=== PATIENT | female | born 1990 | race African-American/Black ===

== ENCOUNTER 2019-12-27 12:45 | Day surgery (SDC) | payer OTHER, SELFPAY ==
[2019-12-26 15:48] LABS: Basophils % 0.5 % (0-1.3); Hematocrit 38.8 % (36.0-45.0); Lymphocytes % 41.8 % (15.3-44.8); MPV 8.9 fL (7.6-11.3); RBC Red Blood Cell Count 4.46 M/uL (3.86-4.86)
[2019-12-26 16:31] LABS: Specific Gravity >= 1.030 (1.005-1.030); Urine Appearance CLEAR; Urine Bilirubin NEGATIVE (NEG); Urine Blood 1+ (NEG); Urine Color YELLOW; Urine Glucose NEGATIVE (NEG); Urine Protein NEGATIVE (NEG); Urine Specific Gravity >=1.030 (1.005-1.030); Urine Urobilinogen 0.2 mg/dL (0.2-1.0)
[2019-12-26 16:36] LABS: Urine Microscopic Reflex ORDER UMIC
[2019-12-26 16:49] LABS: Urine Bacteria <20 /HPF (<20); Urine Culture Reflex Order NOT NEEDED; Urine Mucus 1+ /HPF (NONE SEEN); Urine RBC <5 /HPF (NONE SEEN)
--- OUTSIDE RECORDS SUMMARY | 2019-12-27 14:07 | XMS REPORT | Continuity of Care Document ---
:1990 Author Organization [facility] t Address [address] [place] [address] Care Team Providers Name Role Phone Unavailable Unavailable Unavailable Payers Payer Name Policy Type Policy Number Effective Date Expiration Date S ource Problems This patient has no known problems. Allergies, Adverse Reactions, Alerts Allergy Allergy Status Severity Reaction(s) Onset Inactive Treating Comm ents Source Name Type Date Date Clinician minocycl DA Active SV 2020-0 [facility] [place] 00:00: d 00 [facility] ATROPINE DA Active [place] 2020-0 [facility] EYE 6-10 [place] DROPS 00:00: d 00 [facility] Medications This patient has no known medications. Procedures This patient has no known procedures. Results Test Description Test Time Test Comments Results Result Comments Source CA 125 2019-12-26 08:11:00 Test Item Value Reference Range Interpretation Comme nts CA 125 (test code = 4.2 U/mL 0.0-38.1 [facility] Electrochemiluminescence CA125) Immunoassay(ECL IA)Values obtained with different assay methods or kits cannotbe used interchang eably. Results cannot be interpreted asa bsolute evidence of the presence or abs ence of malignantdiseas e.Performed At: [facility] [place], [place] [address]Yeqwi Kyle L MD Ph:[phone] - PELVIC [id number] 15:26:00 Name: SKYLAR NEELY : 1990 Age/S: 29 / F [address] [address] [place] Unit #: [id number] Loc: [place] [address] Phys: Undefined Provider Acct: [id number] Dis Date: Status: REG CLI PHONE #: [phone] Exam Date: 12/25/2019 1453 FAX #: Reason: Pelvic pain EXAMS: CPT: [id number] US PELVIC COMPLETE 30600 EXAM: - USTRANSVAGINAL NON OB, - US PELVIC COMPLETE LOCATION: E5 HISTORY: PELVIC PAIN COMPARISON: CT abdomen and pelvis dated 12/19/2019 TECHNIQUE: Transabdominal and endovaginal ultrasound was performed. Spectral Doppler and color Doppler sonographic analysis of the adnexa was performed. FINDINGS: The uterus measures 6.1 x 2.8 x3.1 cm. Endometrial stripe measures 0.2 cm. No myometrial masses are seen. The right ovary is surgically absent. There is a large hyperechoic mass seen at the left adnexa mat uring approximately 6.8 x 4.2 x 5.9 cm, relatively unchanged from prior CT. This somewhat obscures evaluation of the left ovary, however the left ovary does demonstrate normal vascularity. Physiologic free fluid is seen in the cul-de-sac. 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 No evidence of ovarian torsion. at 1526 Reported and signed by: Carleen Salinas MD CC: Technologist: Tanya Liu Trnscb Date/Time: 12/25/2019 (1526) t.SDR.EB14 PAGE 1 Signed Report N dm: SKYLAR NEELY [facility] : 1990 Age/S: 29/ F [address] [address] [place] Unit #: [id number] Loc: [place] [address] Phys: Undefined Provider Acct: [id number] Dis Date: Status: REG CLI PHONE #: [phone] Exam Date: 12/25/2019 7773 FAX #: Reason: Pelvic pain EXAMS: CPT: [id number] US PELVIC COMPLETE 50473 <Continued> Or ig Print D/T: S: 12/25/2019 (1530) Probe: PAGE 2 Signed Report- US TRANSVAGINAL NON [id number] 15:26:00 Name: SKYLAR NEELY : 1990 Age/S: 29 / F [address] [address] [place] Unit #: [id number] Loc: [place] [address] Phys: Undefined Provider Acct: [id number] Dis Date: Status: REG CLI PHONE #: [phone] Exam Date: 12/25/2019 5257 FAX #: Reason: PELVIC PAIN EXAMS: CPT: [id number] [place] [address] EXAM: - USTRANSVAGINAL NON OB, - US PELVIC COMPLETE LOCATION: E5 HISTORY: PELVIC PAIN COMPARISON: CT abdomen and pelvis dated 12/19/2019 TECHNIQUE: Transabdominal and endovaginal ultrasound was performed. Spectral Doppler and color Doppler sonographic analysis of the adnexa was performed. FINDINGS: The uterus measures 6.1 x 2.8 x3.1 cm. Endometrial stripe measures 0.2 cm. No myometrial masses are seen. The right ovary is surgically absent. There is a large hyperechoic mass seen at the left adnexa measuring approximately 6.8 x 4.2 x 5.9 cm, relatively unchanged from prior CT. This somewhat obscures evaluation of the left ovary, however the left ovary does demonstrate normal vascularity. Physiologic free fluid is seen in the cul-de-sac. 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 No evidence of ovarian torsion. at 1526 Reported and signed by: Carleen Salinas MD CC: Technologist: Tanya Liu Trnscb Date/Time: 12/25/2019 (1526) [email or web address] PAGE 1 Signed Report Name: SKYLAR NEELY : 1990 Age/S: 29/ F [address] Unit #: [id number] Loc: [place] [address] Phys: Undefined Provider Acct: [id number] Dis Date: Status: REG CLI PHONE #: [phone] Exam Date: 12/25/2019 1115 FAX #: Reason: PELVIC PAIN EXAMS: CPT: [id number] [place] [address] <Continued> Orig Print D/T: S: 12/25/2019 (1530) Probe: [id number] PAGE 2 Signed Report- CT ABD PELVIS W WO [id number] 09:06:00 Name: SKYLAR NEELY : 1990 Age/S: 29 / F [address] [address] [place] Unit #: [id number] Loc: [place] [address] Phys: Undefined Provider Acct: [id number] Dis Date: Status: DEP CLI PHONE #: [phone] Exam Date: 12/19/2019 7334 FAX #: Reason: NAUSEA,CONSTIPATION, PAINFUL RECTAL BLEEING Report Has Been Amended EXAMS: CPT: [id number] CT ABD PELVIS W WO CONT 50648 Addendum - 12/20/2019 SIGNED 12/20/2019 ADDENDUM: [id number] CT/CTABPLWWO Oral contrast was administered for the examination, oral contrast reaches to the level of mid small bowel loops. at 0906 Reported and signed by: Norris Lynch M.D. Transcribed: 12/20/2019 (905) StarANS4 Report EXAMINATION: - CT ABD PELVIS W WO CONT. LOCATION: S17. HISTORY: Nausea, constipation, painful rectal bleeding, appendectomy, right ovary removal, hematuria. COMPARISON: None. TECHNIQUE: CTimaging was performed of abdomen and pelvis before and after intravenous administration of 100cc of Isovue-300. Oral contrast material was also administered. One or more the following dose reduction techniques were used: Automated exposure control, adjustment of mA and/or kV according to patient size, and use of iterative reconstruction technique. FINDINGS: Examination is limited due to lack of oral contrast. Visualized lung bases appear unremarkable. Nonvisualization of gallbladder. Liver, spleen, pancreas, adrenals and kidneys appear unremarkable. No hydronephrosis. Underdistended urinary bladder with possible surrounding stranding. The bowel loops appear normal in course and caliber. No bowel obstruction. Moderate stool throughout colon. Postoperative changes at the base of cecum.Colonic diverticula. PAGE 1 Signed Report (CONTINUED) Name: SKYLAR NEELY : 1990 Age/S: 29 / F [address] [place] Unit #: [id number] Loc: [place] [address] Phys: Undefined Provider Acct: [id number] Dis Date: Status: DEP CLI PHONE #: [phone] Exam Date: 12/19/2019 1515 FAX #: Reason: NAUSEA, CONSTIPATION, PAINFUL RECTAL BLEEING Report Has Been Amended EXAMS: CPT: [id number] CT ABD PELVIS W WO CONT [address]137 <Continued> No abdominal or pelvic bulky lymphadenopathy is identified. No pneumoperitoneum or free fluid. Uterus appears unremarkable by CT technique. Postoperative clips in right adnexa. 6.8 x 5.1 x 5 cm fat attenuation structure in left adnexa containing internal calcifications. Visualized osseous structures appear unremarkable. IMPRESSION: Underdistended urinary bladder with surrounding fat stranding, correlate with UA. Moderate stool throughout colon. Colonic diverticula. 6.8 x 5.1 cm fat attenuation structure in left adnexa containing internal calcifications, indicative of dermoid/teratoma. Electronically Signed by George Lynch on 12/19/2019 at 1601 Reported and signed by: Norris Lynch M.D. CC: Technologist:Tory Stiles, RT(R);... CTDI: DLP: Trnscb Date/Time: 12/19/2019 (1601) [email or web address] Print D/T: S: 12/19/2019 (1604) PAGE 2 Signed Report- CT ABD PELVIS W WO CONT 2019-12-19 16:01:00 Name: SKYLAR NEELY : 1990 Age/S: 29 / F [address] [address] [place] Unit #: [id number] Loc: [place] [address] Phys: Undefined Provider Acct: [id number] Dis Date: Status: REG CLI PHONE #: [phone] Exam Date: 12/19/2019 1515 FAX #: Reason: NAUSEA,CONSTIPATION, PAINFUL RECTAL BLEEING EXAMS: CPT: [id number] CT ABD PELVIS W WO CONT 85377 EXAMINATION: - CT ABD PELVIS W WO CONT. LOCATION: S17. HISTORY: Nausea, constipation, painful rectal bleeding, appendectomy, right ovary removal, hematuria. COMPARISON: None. TECHNIQUE: CT imaging was performed of abdomen and pelvis before and after intravenous administration of 100 cc of Isovue-300. Oral contrast material was also administered. One or more the following dose reduction techniques were used: Automated exposure control, adjustment of mA and/or kV according to patient size, and use of iterative reconstruction technique. FINDINGS: Examination is limited due to lack of oral contrast. Visualized lung bases appear unremarkable. Nonvisualization of gallbladder. Liver, spleen, pancreas, adrenals and kidneys appear unremarkable. No hydronephrosis. Underdistended urinary bladder with possible surrounding stranding. The bowel loops appear normal in course and caliber. No bowel obstruction. Moderate stool throughout colon. Postoperative changes at the base of cecum. Colonic diverticula. No abdominal or pelvic bulky lymphadenopathy is identified. No pneumoperitoneum or free fluid. Uterus appears unremarkable by CT technique. Postoperative clips in right adnexa. 6.8 x 5.1 x 5 cm fat attenuation structure in left adnexa containing internal calcifications. Visualized oss eous structures appear unremarkable. IMPRESSION: Underdistended urinary bladder with surrounding fat stranding, correlate with UA. Moderate stool throughout colon. Colonic diverticula. PAGE 1 Signed Report (CONTINUED) Name: SKYLAR NEELY [place] : 1990 Age/S: 29 / F [address] [facility] [place] Unit #: [id number] Loc: [place] [address] Phys: Undefined Provider Acct: [id number] Dis Date: Status: REG CLI PHONE #: [phone] Exam Date: 12/19/2019 0275 FAX #: Reason: NAUSEA, CONSTIPATION, PAINFUL RECTAL BLEEING EXAMS: CPT: [id number] CT ABD PELVIS W [place] CONT [address] <Continued> 6.8 x 5.1 cm fat attenuation structure inleft adnexa containing internal calcifications, indicative of dermoid/teratoma. [id number] Reported and signed by: Norris Lynch M.D. CC: Technologist:Tory L Stiles, RT(R); ... CTDI: DLP: Trnscb Date/Time: 12/19/2019 (160) t.DAER.[email or web address] Orig Print D/T: S: 12/19/2019 (9510) PAGE 2 Signed ReportHIGH SENSITIVITY CRP 2019-11-22 08:35:00 Test Item Value Reference Range Interpretation Comments HIGH SENSITIVITY CRP 10.75 mg/L 0.00-3.00 A Relative Risk (test code = CRPHS) for Futu re Cardiovascular Event Low <1.00 [place] 1.00 - 3.00 High >3.00Performed At: [facility] [address] [id number] ruben Reid MD Ph:[phone] [facility] COMPREHENSIVE METABOLIC [id number] 08:01:00 Test Item Value Reference Range Interpretation Comments SODIUM (test code = NA) 136 mmol/L 134-147 N POTASSIUM (test code = 4.0 mmol/L 3.4-5.0 N K) CHLORIDE (test code = 106 mmol/L 100-108 N CL) CARBON DIOXIDE (test 25 mmol/L 21-32 N code = CO2) ANION GAP (test code = 5.0 GAP calc 4.0-15.0 N GAP) GLUCOSE (test code = 90 MG/DL 70-110 N GLU) BLOOD UREA NITROGEN 10 MG/DL 7-18 N (test code = BUN) GLOMERULAR FILTRATION >=60 max estimate >60 RATE (test code = GFR) estGFR CREATININE (test code = 0.7 MG/DL 0.6-1.0 N CREAT) TOTAL PROTEIN (test code 7.9 G/DL 6.4-8.2 N = PROT) ALBUMIN (test code = 4.1 G/DL 3.4-5.0 N ALB) GLOBULIN (test code = 3.8 GM/dL GLOB) ALBUMIN/GLOBULIN RATIO 1.1 RATIO 1.2-2.2 L (test code = A/G) CALCIUM (test code = CA) 9.3 MG/DL 8.5-10.1 N BILIRUBIN TOTAL (test 0.30 MG/DL 0.2-1.2 N code = BILT) SGOT/AST (test code = 14 Unit/L 15-37 L AST) SGPT/ALT (test code = 21 Unit/L 12-78 N ALT) ALKALINE PHOSPHATASE 76 Unit/L 45-117 N TOTAL (test code = ALKP) LIPID PROFILE (CORONARY RISK)2019-11-22 08:01:00 Test Item Value Reference Range Interpretation Comments TRIGLYCERIDES (test code = TRIG) 54 MG/DL 0-150 N CHOLESTEROL (test code = CHOL) 161 MG/DL 133-200 N CHOLESTEROL/HDL RATIO (test code = 4.24 RATIO >0 CHOLHDL) HDL CHOLESTEROL (test code = HDL) 38 MG/DL 40-59 L NON-HDL CHOLESTEROL (test code = 123 mg/dL <130 NHDL) LIPOPROTEIN LDL (test code = LDL) 115 MG/DL 0-129 N LDL/HDL (test code = LDL/HDL) 3.02 Ratio 1.48-3.22 Avg N SERUM [id number] 08:01:00 Test Item Value Reference Range Interpretation Comments SERUM IRON (test code = IRON) 50 mcG/DL 50-170 N VITAMIN [id number] 08:01:00 Test Item Value Reference Range Interpretation Comments VITAMIN B12 (test code = VITB12) 316 PG/ML 183-986 N FOLIC [id number] 08:01:00 Test Item Value Reference Range Interpretation Comments FOLIC ACID (test code = FOL) 18.90 NG/ML 3.10-17.50 H T3 [id number] 08:01:00 Test Item Value Reference Range Interpretation Comments T3 FREE (test code = 2.8 pg/mL 2.0-4.4 Perform ed At: [facility] T3F) [address] [place], [place] [id number] Kyle L MD Ph:[phone] T4 [id number] 08:01:00 Test Item Value Reference Range Interpretation Comments T4 FREE (test code = T4F) 0.95 NG/DL 0.89-1.76 N THYROID STIMULATING [id number] 08:01:00 Test Item Value Reference Range Interpretation Comments THYROID STIMULATING HORMONE 0.382 mcIU/ML 0.340-4.820 N (test code = TSH) [id number] 08:01:00 Test Item Value Reference Range Interpretation Comments LITHIUM (test 0.2 mmol/L 0.6-1.2 L code = LITH) Detection Limit = 0.1 <0.1 indicate s None DetectedPerform ed At: [facility] [place] [address] [place], [place] [id number] Reid MD Ph:[phone] VITAMIN D [id number] 08:01:00 Test Item Value Reference Range Interpretation Comments VITAMIN D 22.1 ng/mL 30.0-100.0 A Vitamin D defic iency has 25-HYDROXY (test been define d by the code = VITD25) [facility] edicine and an Endocrine So ciety practice guidel ine as alevel of serum 25-OH vitamin D less than 20 ng/mL (1,2).The Endocrine Society went on to further define vitamin Dinsufficiency as a level between 21 and 29 ng/mL (2).1. IOM (Ins titute of Medicine). 2010 . Dietary reference int akes for calcium and D. [place]: The How do you roll? Press .2. Bryon MF, Alissa NC, Natty bucio BLEDSOE, et al. Evaluatio n, treatment, and prevention of vitamin D deficiency: an Endocrine Society clinica l practice guideline. STEFANO EM. 2010; 96(7):1911-30.P erformed At: [facility]fnfokx232[address] [place], [place] [id number] Reid MD Ph:[phone] COMPREHENSIVE METABOLIC [id number] 05:09:00 Test Item Value Reference Range Interpretation Comments SODIUM (test code = NA) 136 mmol/L 134-147 N POTASSIUM (test code = 4.0 mmol/L 3.4-5.0 N K) CHLORIDE (test code = 106 mmol/L 100-108 N CL) CARBON DIOXIDE (test 25 mmol/L 21-32 N code = CO2) ANION GAP (test code = 5.0 GAP calc 4.0-15.0 N GAP) GLUCOSE (test code = 90 MG/DL 70-110 N GLU) BLOOD UREA NITROGEN 10 MG/DL 7-18 N (test code = BUN) GLOMERULAR FILTRATION >=60 max estimate >60 RATE (test code = GFR) estGFR CREATININE (test code = 0.7 MG/DL 0.6-1.0 N CREAT) TOTAL PROTEIN (test code 7.9 G/DL 6.4-8.2 N = PROT) ALBUMIN (test code = 4.1 G/DL 3.4-5.0 N ALB) GLOBULIN (test code = 3.8 GM/dL GLOB) ALBUMIN/GLOBULIN RATIO 1.1 RATIO 1.2-2.2 L (test code = A/G) CALCIUM (test code = CA) 9.3 MG/DL 8.5-10.1 N BILIRUBIN TOTAL (test 0.30 MG/DL 0.2-1.2 N code = BILT) SGOT/AST (test code = 14 Unit/L 15-37 L AST) SGPT/ALT (test code = 21 Unit/L 12-78 N ALT) ALKALINE PHOSPHATASE 76 Unit/L 45-117 N TOTAL (test code = ALKP) LIPID PROFILE (CORONARY RISK)2019-11-22 05:09:00 Test Item Value Reference Range Interpretation Comments TRIGLYCERIDES (test code = TRIG) 54 MG/DL 0-150 N CHOLESTEROL (test code = CHOL) 161 MG/DL 133-200 N CHOLESTEROL/HDL RATIO (test code = 4.24 RATIO >0 CHOLHDL) HDL CHOLESTEROL (test code = HDL) 38 MG/DL 40-59 L NON-HDL CHOLESTEROL (test code = 123 mg/dL <130 NHDL) LIPOPROTEIN LDL (test code = LDL) 115 MG/DL 0-129 N LDL/HDL (test code = LDL/HDL) 3.02 Ratio 1.48-3.22 Avg N SERUM [id number] 05:09:00 Test Item Value Reference Range Interpretation Comments SERUM IRON (test code = IRON) 50 mcG/DL 50-170 N VITAMIN [id number] 05:09:00 Test Item Value Reference Range Interpretation Comments VITAMIN B12 (test code = VITB12) 316 PG/ML 183-986 N FOLIC [id number] 05:09:00 Test Item Value Reference Range Interpretation Comments FOLIC ACID (test code = FOL) 18.90 NG/ML 3.10-17.50 H T3 [id number] 05:09:00 Test Item Value Reference Range Interpretation Comments T3 FREE (test code = 2.8 pg/mL 2.0-4.4 Perform ed At: [facility] T3F) [address] [place], [place] [id number] Kyle L MD Ph:[phone] T4 [id number] 05:09:00 Test Item Value Reference Range Interpretation Comments T4 FREE (test code = T4F) 0.95 NG/DL 0.89-1.76 N THYROID STIMULATING [id number] 05:09:00 Test Item Value Reference Range Interpretation Comments THYROID STIMULATING HORMONE 0.382 mcIU/ML 0.340-4.820 N (test code = TSH) [id number] 05:09:00 Test Item Value Reference Range Interpretation Comments LITHIUM (test code = LITH) MMOL/L 0.6-1.2 VITAMIN D [id number] 05:09:00 Test Item Value Reference Range Interpretation Comments VITAMIN D 22.1 ng/mL 30.0-100.0 A Vitamin D defic iency has 25-HYDROXY (test been define d by the code = VITD25) [facility] edicine and an Endocrine So ciety practice guidel ine as alevel of serum 25-OH vitamin D less than 20 ng/mL (1,2).The Endocrine Society went on to further define vitamin Dinsufficiency as a level between 21 and 29 ng/mL (2).1. IOM (Ins titute of Medicine). 2010 . Dietary reference int akes for calcium and D. [place]: The [employer] Academies Press .2. Bryon MF, Alissa NC, Natty i BLEDSOE, et al. Evaluatio n, treatment, and prevention of vitamin D deficiency: an Endocrine Society clinica l practice guideline. STEFANO EM. 2010; 96(7):1911-30.P erformed At: [facility] [address] [place], [place] [id number] Reid MD Ph:[phone] COMPREHENSIVE METABOLIC [id number] 04:07:00 Test Item Value Reference Range Interpretation Comments SODIUM (test code = NA) 136 mmol/L 134-147 N POTASSIUM (test code = 4.0 mmol/L 3.4-5.0 N K) CHLORIDE (test code = 106 mmol/L 100-108 N CL) CARBON DIOXIDE (test 25 mmol/L 21-32 N code = CO2) ANION GAP (test code = 5.0 GAP calc 4.0-15.0 N GAP) GLUCOSE (test code = 90 MG/DL 70-110 N GLU) BLOOD UREA NITROGEN 10 MG/DL 7-18 N (test code = BUN) GLOMERULAR FILTRATION >=60 max estimate >60 RATE (test code = GFR) estGFR CREATININE (test code = 0.7 MG/DL 0.6-1.0 N CREAT) TOTAL PROTEIN (test code 7.9 G/DL 6.4-8.2 N = PROT) ALBUMIN (test code = 4.1 G/DL 3.4-5.0 N ALB) GLOBULIN (test code = 3.8 GM/dL GLOB) ALBUMIN/GLOBULIN RATIO 1.1 RATIO 1.2-2.2 L (test code = A/G) CALCIUM (test code = CA) 9.3 MG/DL 8.5-10.1 N BILIRUBIN TOTAL (test 0.30 MG/DL 0.2-1.2 N code = BILT) SGOT/AST (test code = 14 Unit/L 15-37 L AST) SGPT/ALT (test code = 21 Unit/L 12-78 N ALT) ALKALINE PHOSPHATASE 76 Unit/L 45-117 N TOTAL (test code = ALKP) LIPID PROFILE (CORONARY RISK)2019-11-22 04:07:00 Test Item Value Reference Range Interpretation Comments TRIGLYCERIDES (test code = TRIG) 54 MG/DL 0-150 N CHOLESTEROL (test code = CHOL) 161 MG/DL 133-200 N CHOLESTEROL/HDL RATIO (test code = 4.24 RATIO >0 CHOLHDL) HDL CHOLESTEROL (test code = HDL) 38 MG/DL 40-59 L NON-HDL CHOLESTEROL (test code = 123 mg/dL <130 NHDL) LIPOPROTEIN LDL (test code = LDL) 115 MG/DL 0-129 N LDL/HDL (test code = LDL/HDL) 3.02 Ratio 1.48-3.22 Avg N SERUM [id number] 04:07:00 Test Item Value Reference Range Interpretation Comments SERUM IRON (test code = IRON) 50 mcG/DL 50-170 N VITAMIN [id number] 04:07:00 Test Item Value Reference Range Interpretation Comments VITAMIN B12 (test code = VITB12) 316 PG/ML 183-986 N FOLIC [id number] 04:07:00 Test Item Value Reference Range Interpretation Comments FOLIC ACID (test code = FOL) 18.90 NG/ML 3.10-17.50 H T3 [id number] 04:07:00 Test Item Value Reference Range Interpretation Comments T3 FREE (test code = 2.8 pg/mL 2.0-4.4 Perform ed At: [facility] T3F) [address] [place], [place] [id number] Carlos Reid MD Ph:[phone] T4 [id number] 04:07:00 Test Item Value Reference Range Interpretation Comments T4 FREE (test code = T4F) 0.95 NG/DL 0.89-1.76 N THYROID STIMULATING [id number] 04:07:00 Test Item Value Reference Range Interpretation Comments THYROID STIMULATING HORMONE 0.382 mcIU/ML 0.340-4.820 N (test code = TSH) [id number] 04:07:00 Test Item Value Reference Range Interpretation Comments LITHIUM (test code = LITH) MMOL/L 0.6-1.2 VITAMIN D [id number] 04:07:00 Test Item Value Reference Range Interpretation Comments VITAMIN D 25-HYDROXY (test code = VITD25) COMPREHENSIVE METABOLIC [id number] 16:27:00 Test Item Value Reference Range Interpretation Comments SODIUM (test code = NA) 136 mmol/L 134-147 N POTASSIUM (test code = 4.0 mmol/L 3.4-5.0 N K) CHLORIDE (test code = 106 mmol/L 100-108 N CL) CARBON DIOXIDE (test 25 mmol/L 21-32 N code = CO2) ANION GAP (test code = 5.0 GAP calc 4.0-15.0 N GAP) GLUCOSE (test code = 90 MG/DL 70-110 N GLU) BLOOD UREA NITROGEN 10 MG/DL 7-18 N (test code = BUN) GLOMERULAR FILTRATION >=60 max estimate >60 RATE (test code = GFR) estGFR CREATININE (test code = 0.7 MG/DL 0.6-1.0 N CREAT) TOTAL PROTEIN (test code 7.9 G/DL 6.4-8.2 N = PROT) ALBUMIN (test code = 4.1 G/DL 3.4-5.0 N ALB) GLOBULIN (test code = 3.8 GM/dL GLOB) ALBUMIN/GLOBULIN RATIO 1.1 RATIO 1.2-2.2 L (test code = A/G) CALCIUM (test code = CA) 9.3 MG/DL 8.5-10.1 N BILIRUBIN TOTAL (test 0.30 MG/DL 0.2-1.2 N code = BILT) SGOT/AST (test code = 14 Unit/L 15-37 L AST) SGPT/ALT (test code = 21 Unit/L 12-78 N ALT) ALKALINE PHOSPHATASE 76 Unit/L 45-117 N TOTAL (test code = ALKP) LIPID PROFILE (CORONARY RISK)2019-11-21 16:27:00 Test Item Value Reference Range Interpretation Comments TRIGLYCERIDES (test code = TRIG) 54 MG/DL 0-150 N CHOLESTEROL (test code = CHOL) 161 MG/DL 133-200 N CHOLESTEROL/HDL RATIO (test code = 4.24 RATIO >0 CHOLHDL) HDL CHOLESTEROL (test code = HDL) 38 MG/DL 40-59 L NON-HDL CHOLESTEROL (test code = 123 mg/dL <130 NHDL) LIPOPROTEIN LDL (test code = LDL) 115 MG/DL 0-129 N LDL/HDL (test code = LDL/HDL) 3.02 Ratio 1.48-3.22 Avg N SERUM [id number] 16:27:00 Test Item Value Reference Range Interpretation Comments SERUM IRON (test code = IRON) 50 mcG/DL 50-170 N VITAMIN [id number] 16:27:00 Test Item Value Reference Range Interpretation Comments VITAMIN B12 (test code = VITB12) 316 PG/ML 183-986 N FOLIC [id number] 16:27:00 Test Item Value Reference Range Interpretation Comments FOLIC ACID (test code = FOL) 18.90 NG/ML 3.10-17.50 H T3 [id number] 16:27:00 Test Item Value Reference Range Interpretation Comments T3 FREE (test code = T3F) T4 [id number] 16:27:00 Test Item Value Reference Range Interpretation Comments T4 FREE (test code = T4F) 0.95 NG/DL 0.89-1.76 N THYROID STIMULATING [id number] 16:27:00 Test Item Value Reference Range Interpretation Comments THYROID STIMULATING HORMONE 0.382 mcIU/ML 0.340-4.820 N (test code = TSH) [id number] 16:27:00 Test Item Value Reference Range Interpretation Comments LITHIUM (test code = LITH) MMOL/L 0.6-1.2 VITAMIN D [id number] 16:27:00 Test Item Value Reference Range Interpretation Comments VITAMIN D 25-HYDROXY (test code = VITD25) GLYCOSYLATED HEMOGLOBIN [id number] 15:32:00 Test Item Value Reference Range Interpretation Comments GLYCOSYLATED HEMOGLOBIN (HA1C) 5.3 % A1C 0.0-5.7 N (test code = GLYHGB) ESTIMATED AVERAGE GLUCOSE (test 105 MG/DLest code = EAG) CBC W/AUTO [id number] 15:07:00 Test Item Value Reference Range Interpretation Comments WHITE BLOOD CELL (test code = 7.6 K/mm3 3.5-11.0 N WBC) RED BLOOD CELL (test code = RBC) 4.36 M/mm3 4.70-6.10 L HEMOGLOBIN (test code = HGB) 11.8 G/DL 10.4-14.9 N HEMATOCRIT (test code = HCT) 38.1 % 31.5-44.1 N MEAN CELL VOLUME (test code = 87.4 Fl 84.5-98.6 N MCV) MEAN CELL HGB (test code = MCH) 27.1 pg 27.0-34.2 N MEAN CELL HGB CONCETRATION (test 31.0 G/DL 31.5-34.0 L code = [facility]) RED CELL DISTRIBUTION WIDTH (test 13.3 SD 11.5-14.5 N code = RDW) PLATELET COUNT (test code = PLT) 271.0 K/mm3 150-450 N MEAN PLATELET VOLUME (test code = 9.90 fL 7.0-10.5 N MPV) NEUTROPHIL % (test code = NT%) 59.2 % 40-76 N LYMPHOCYTE % (test code = LY%) 31.7 % 20.5-51.1 N MONOCYTE % (test code = MO%) 7.7 % 1.7-9.3 N EOSINOPHIL % (test code = EO%) 1.1 % 0.0-6.0 N BASOPHIL % (test code = BA%) 0.3 % 0.0-2.0 N NEUTROPHIL # (test code = NT#) 4.48 K/mm3 1.8-7.6 N LYMPHOCYTE # (test code = LY#) 2.4 K/mm3 0.6-3.2 N MONOCYTE # (test code = MO#) 0.6 K/mm3 0.3-1.1 N EOSINOPHIL # (test code = EO#) 0.1 K/mm3 0.0-0.4 N BASOPHIL # (test code = BA#) 0.0 K/mm3 0.0-0.1 N MANUAL DIFF REQUIRED (test code = NO DIFF/SCN CRITERIA MDIFF)
[2019-12-27] MEDS ORDERED: propofoL 200 MG/20 ML VIAL IV ONE (14:10)
[2019-12-27] MEDS ORDERED: FENTANYL CITR 100 MCG/2 ML ONE ×2 (14:10→16:00)
[2019-12-27] MEDS ORDERED: LIDOCAINE 2% MPF 5 ML VIAL ONE (14:11)
[2019-12-27] MEDS ORDERED: dexAMETHasone 10 MG/ML VIAL ONE (14:11)
[2019-12-27] MEDS ORDERED: MIDAZOLAM HCL 2 MG/2 ML INJ ONE (14:11)
[2019-12-27] MEDS ORDERED: KETOROLAC 30 MG/ML INJ ONE (14:11)
[2019-12-27] MEDS ORDERED: ROCURONIUM 50 MG/5 ML VIAL IV ONE (14:11)
[2019-12-27] MEDS ORDERED: ONDANSETRON 4 MG/2 ML VIAL ONE ×3 (14:12→19:15)
[2019-12-27] MEDS ORDERED: HEPARIN 5000 UNIT/ML 1 ML VIAL ONE (14:14)
[2019-12-27] MEDS ORDERED: Ringers Lactate 1,000 ML IV ONE (14:14)
[2019-12-27] MEDS ORDERED: SCOPOLAMINE HYDROBROMIDE PATCH TD ONE (14:14)
[2019-12-27] MEDS ORDERED: CODEINE 30MG/APAP 300MG TAB ONE (15:32)
[2019-12-27] MEDS ORDERED: CEFAZOLIN SODIUM 1 GM/VIAL ONE (16:58)
[2019-12-27] MEDS ORDERED: NS 0.9% VIAL 10 ML ONE (16:58)
[2019-12-27] MEDS ORDERED: GLYCOPYRROLATE 0.2 MG/ML SYR ONE ×2 (17:48)
[2019-12-27] MEDS ORDERED: NEOSTIGMINE 1 MG/ML -5 ML ONE (17:49)
[2019-12-27] MEDS: HYDROMORPHONE HCL 1 MG/ML INJ ONE ×2 (18:55→19:00)
[2019-12-27] MEDS ORDERED: HYDROMORPHONE HCL 1 MG/ML INJ ONE (19:15)
[2019-12-27] MEDS ORDERED: PROMETHAZINE INJ 25 MG/ML AMP ONE (19:42)
[2019-12-27] MEDS ORDERED: HYDROCODONE/APAP 5/325 MG TAB ONE (20:10)
[2019-12-27 20:27] VITALS: BP 110/52; TEMP 97.5; O2SAT 100
--- NOTE | 2019-12-29 13:03 | OP ---
Date of Procedure: 12/27/2019 Surgeon: Shaye Dasilva MD Preoperative Diagnoses: Pelvic pain, left adnexal mass, possible teratoma. 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 Procedures Performed: Diagnostic laparoscopy, pelvic washings, left ovariolysis, removal of left ovarian teratoma Anesthesia: General endotracheal. Specimens: Left ovarian mass, pelvic washings. Complications: No complications. Drains: No drains. Condition: Stable. Findings: Right tube and ovary completely absent. Left tube intact without any anatomical distortion, appeared completely normal. The left ovarian tumor was on the pole of the ovary, opposite the ovarian vessels. Completely removed the cyst without rupture of the cyst, however when bagging the cyst there was breakage of the cyst wall with slight contamination of the peritoneal cavity with sebaceous material. This was immediately contained by placing the first bag with the specimen on top of which there was sebaceous material into another bag and this was closed with no further contamination and the peritoneal cavity was rinsed with at least 2 L of normal saline. Until everything was clear, no evidence of any hair or sebaceous material was seen noted in the pelvic cavity after this. Indication: The patient is a 29-year-old 0. She had history of pelvic pain, diagnostic laparoscopy a few years ago, negative for endometriosis, moved away from here and was found to have pelvic pain and right adnexal complex mass that was about 2 cm. She was referred from a general senior game designer to an oncologist in [place] at [place] and underwent right salpingo-oophorectomy for this. She has done well. The pathology revealed a teratoma by patient report. At this time, the patient has presented with pelvic pain and an adnexal mass that was complex less than 7 cm on the left side most likely. Did not appear to have any acute symptoms of torsion, however there was significant enough pain to need a laparoscopy at this time. Her CA-125 was ordered, however the test results were not available when her preop was done and she was taken to the OR. 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 So, counseled the patient on preservation of the ovary, removal of the teratoma, very small chance of removal of tube and ovary leading to premature surgical menopause. After being consented, she was taken to the OR. She also has a remote history of deep venous thrombosis on combination hormones and therefore given the hypercoagulable state for this patient, she was given 5000 of heparin subcu followed by Lovenox 60 mg subcu for 1 week postop due to early mobilization and the short duration of the procedure. With patient in the lithotomy all precautions taken including SCDs, I think it is completely optimal to limit her anticoagulation to 1 week. Description Of Procedure: After informed consent was verified, she was taken back to OR, 1 g of Ancef was given. She was placed in a supine fashion on the operating table. General anesthesia was given, placed in a dorsal lithotomy position. Arms tucked by the side. Abdomen, vulva, vagina, and perineum were prepped and draped in a sterile fashion. Hendricks placed to drain the bladder. Speculum placed to expose the cervix. Anterior lip of the cervix was grasped with an Allis clamp and the cervical canal dilated to 12-Nigerien. Diagnostic VCare introduced to the uterus for uterine manipulation. Once the bottom was draped, an infraumbilical incision was made with the scalpel using the open laparoscopy technique. Fascia was incised and tagged with 0 Vicryl sutures. S-retractors were placed. Peritoneum entered sharply. Insufflation done and Diony introduced. Site of entry was checked, unremarkable. A 5 mm suprapubic and 5 mm left lower quadrant ports were placed under direct vision and peritoneal cavity was surveyed well. Thorough inspection was done, then pelvic washings were taken. The cyst appeared to be completely smooth on its surface and there were adhesions of the ovary to the lateral aspect of the lateral wall of the pelvis. This could be from either prior torsion or inflammation of the dermoid. The ovarian adhesions were taken down so that the ovary could be released. No evidence of any endometriosis was seen. The right tube and ovary were completely absent. Ureters were undistorted and in their normal anatomical courses bilaterally. The tube was unremarkable. A monopolar needle was taken and incision made along the base of the tumor about 2 cm away from the insertion of the IP and the fimbriated end of the tube. A careful superficial incision on the ovarian capsule was made, then the mass was dissected systematically with the curved tip LigaSure as well as an atraumatic grasper to shell it out from its base and the hemostasis was secured adequately without causing too much cautery effect of the capsule. There were several follicular cells on the ovarian tissue and they appeared to be very viable at the end of removal of the tumor. The tumor was left in the anterior cul-de-sac and the 10 camera was changed to a 5 and through the umbilical port the 10 bag was placed and the specimen was placed into the bag. As I was placing into the bag, the superficial part where the sebaceous material was most visible with the capsule being very thin in this location, there was slight spillage of this material immediately as that the bag was closed down and then a second bag was taken and the specimen was placed into it, making sure that all the sebaceous material went into that bag. Once this bag was closed, there were no material leaking out of the bag and the rest of the material that was present right at the brim of the pelvis was washed down into the pelvis by placing the patient in reverse Trendelenburg and once the fluid was all suctioned out, very few strands of hair were seen and these were removed. Thorough irrigation and suction was performed. The patient was placed in Trendelenburg and reversed Trendelenburg and completely irrigated the entire abdominal cavity. Once this was done to my satisfaction, then the ports were removed under direct vision, injected with Marcaine at the onset and at the end. Then, the bag was pulled out through the umbilical incision after removing the Diony. Once first bag was opened up, it was held with Steffanie's. A sterile towel was placed all around by making an opening in the center to allow the bag to come out to prevent spillage. This towel helped us. The second bag was opened up and gradually with the help of an Allis, the material was pulled out and suctioned out. There was still more of the tissue that was unable to be pulled out in this fashion and so an extension of another cm on the fascia and skin was made and this allowed the bag to come out without any problems. The entire specimen was handed off for permanent pathology. I removed the towel, changed gloves for all staff members. Then all the operating room team members proceeded with closure of the incision. The incision was closed with the fascia with a continuous running 0 Vicryl stitch. Then, thorough irrigation and suction was performed here to clear up the subcutaneous tissues. Then the skin was closed with the help of continuous running 4-0 Vicryl stitch and other 2 small incisions closed with the interrupted 4-0 Vicryl. Hendricks was removed. VCare was removed. Instrument, needle, and sponge counts were correct at the end of the case. Before the removal of all the trocars, after the specimen was securely placed in the bag and irrigation was complete. I placed Interceed in 1 sheet, cut in the middle into 2 halves. The first one was placed around to wrap the ovarian tissue without exposing any of the raw tissue. I did not think that placing a suture was appropriate because it would increase the risk of bleeding as I was very close to the ovarian pedicle and the tube was also preserved on top of the capsule along with its fimbriae without any injury until this point. So it would be very hard to close appropriately for good apposition as well as increase the risk of bleeding at this point for this patient, who was going to be on Lovenox. So my decision was to wrap the ovary and I placed another second half of the Interceed over the tube as well as the ovary and wrapped it all the way around and placed it down after the uterus was placed down into its normal anatomical position. Then, all the trocars were removed as dictated above. She was recovered from anesthesia in the OR and taken to the PACU in stable condition. All the findings were discussed with her father. Instrument, needle, and sponge counts were correct. Estimated Blood Loss: Minimal. Urine Output: 100. Followup: She has a 1 week follow up with me. ZO/JAD Voice ID: [id number] Report ID: [id number] PAUL
== END 2019-12-27 20:44 | disposition home health service (06) ==
LOC: OR 12:45
PROVIDERS: ATTEND Obstetrics & Gynecology
PROC: 0UB14ZZ Excision of Left Ovary, Percutaneous Endoscopic Approach (ICD-10-PCS; principal; 2019-12-27 14:30)
DX: C56.2 Malignant neoplasm of left ovary (principal); N73.8 Other specified female pelvic inflammatory diseases; N73.6 Female pelvic peritoneal adhesions (postinfective); F33.1 Major depressive disorder, recurrent, moderate; E28.2 Polycystic ovarian syndrome; K58.9 Irritable bowel syndrome, unspecified; Z79.899 Other long term (current) drug therapy; Z86.718 Personal history of other venous thrombosis and embolism
CPT/HCPCS: 85025; 36415; 88108; 81025; 88305 ×2; 58662; U0002; J2704; J2550; J1644; J2250; J3010 ×2; J1100; J1170 ×2; J2710; J7120; J2405 ×3; J0690; 81003; 81015; 88304

== ENCOUNTER 2020-04-20 03:53 | Emergency (ER) | payer OTHER ==
--- OUTSIDE RECORDS SUMMARY | 2020-04-20 03:56 | XMS REPORT | Continuity of Care Document ---
:1990 Author Organization [facility] t Address [address] [place] [address] Care Team Providers Name Role Phone NARGIS Primary Care Physician Unavailable KRISTINA Attending Clinician Unavailable SYSTEM, NOT IN Attending Clinician Unavailable Miguel ARIZMENDI Attending Clinician MIGUEL Attending Clinician Unavailable NARGIS Attending Clinician Unavailable Nargis KITCHEN Attending Clinician Kristina KITCHEN Attending Clinician January Hernandez RN, A Attending Clinician Unavailable Payers Payer Name Policy Type Policy Number Effective Date Expiration Date Maxim [facility] POS [id number] 2019 00:00:00 OPEN ACCESS Problems Condition Condition Condition Status Onset Resolution Last Treating Co mments Source Name Details Category Date Date Treatment Clinician Date 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 00:00: n 00 Menopausal Menopausal Disease Active M D flushing flushing 9-14 Ermias o 00:00: n 00 Malignant Malignant Disease Active neoplasm neoplasm 7-13 Ermias o of left of left 00:00: n ovary ovary 00 Acute Acute Disease Active popliteal popliteal 7-13 Yves rso DVT DVT 00:00: n 00 History of History of Disease Active 2018-07 M D reduction reduction 0-11 Yves rso of breast of breast 00:00: n 00 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 00:00: n characteri characteri 00 zed by zed by constipati constipati on on Polycystic Polycystic Disease Active 2019-1 M D ovarian 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 00:00: n 00 Psoriasis Psoriasis Disease Active 2018- 0-11 Jovanierso 00:00: n 00 Allergies, Adverse Reactions, Alerts Allergy Allergy Status Severity Reaction(s) Onset Inactive Treating Comm ents Source Name Type Date Date Clinician minocycl DA Active SV 2020-0 [facility] ATROPINE DA Active IN 2019-0 [facility] EYE 6[facility]10 [place] Family History Family Member Diagnosis Comments Start Date Stop Date Source Maternal aunt Breast cancer MD Rossi son Maternal cousin Breast cancer jordyn Maternal grandmother Ovarian cancer MD [place] Social History Social Habit Start Date Stop Date Quantity Comments Source Sex Assigned At MD Monson on Exposure to Not sure MD Matute SARS-CoV-2 (event) Tobacco use and 2020-01-21 2020-01-21 Never used MD Monson on exposure 00:00:00 00:00:00 Alcohol intake 2020-01-21 2020-01-21 Ex-drinker MD Santana lopez 00:00:00 00:00:00 (finding) Alcohol Comment 2020-01-21 2020-01-21 I have like one MD Brooke hebert 00:00:00 00:00:00 drink a month Smoking Status Start Date Stop Date Source Never smoker MD [place] Medications Ordered Filled Start Stop Current Ordering Indication Dosage Frequency Signature Comments Components Source Medication Medication Date Date Medication? Clinician (SIG) Name Name medroxyPROG 2019- Yes 150mg Inject 150 MD ESTERone 9-14 mg into Anderso (DEPO-PROVE 17:52: the n RA) 150 04 shoulder, mg/mL thigh, or injection buttocks every 3 (three) months. risperiDONE 2019- Yes .5mg Take 0.5 MD (RisperDAL) 9-14 mg by Anderso 0.5 mg 17:52: mouth n tablet 04 daily. docusate 2019-2019- No 100mg Take 100 MD sodium 9-14 09-14 mg by Anderso (COLACE) 17:52: 00:00 mouth 2 n 100 mg 01 :00 (two) capsule times a day as needed. acetaminoph 650mg Take 650 MD lechuga 03-24 mg by Anderso (TYLENOL) 17:51: 00:00 mouth n 325 mg 58 :00 every 6 tablet (six) hours as needed for mild pain. diphenhydrA Yes MD REA 03-11 Anderso (BenadryL) 00:00: n 25 mg 00 capsule lithium 2018-07 Yes 600mg 600 mg MD carbonate 07-16 daily. Anderso 300 MG 00:00: n capsule 00 fluocinolon 2018-07 Yes APPLY TO MD richter 07-16 AFFECTED Anderso (DERMA-SMOO 00:00: AREA ON n THE) 0.01 % 00 SCALP ONCE external A DAY oil Vital Signs Vital Name Observation Time Observation Value Comments Source Systolic blood pressure 2020-03-24 17:55:00 124 mm[Hg] MD Mat[place] Diastolic blood pressure 2020-03-24 17:55:00 79 mm[Hg] MD [place] Heart rate 2020-03-24 17:55:00 69 /min MD Flo sherman Body temperature 2020-03-24 17:55:00 36.83 Zayra MD Brooke hebert Respiratory rate 2020-03-24 17:55:00 17 /min MD Brooke hebert Body weight 2020-03-24 17:55:00 106.7 kg MD Rossi son BMI 2020-03-24 17:55:00 34.84 kg/m2 MD Flo sherman Body height 2020-01-21 16:19:00 175 cm MD Flo sherman Oxygen saturation in 2020-01-21 16:17:56 97 /min MD [place] Arterial blood by Pulse oximetry Procedures Procedure Date / Time Performed Performing Clinician [facility] e FOLLICLE STIMULATING HORMONE 2020-03-24 18:32:00 Lilliana Barillas MD LEVEL ALPHA FETOPROTEIN TUMOR MARKER 2020-03-24 13:16:00 Kristine Salinas MD LACTATE DEHYDROGENASE 2020-03-24 13:16:00 Kristine Salinas MD And irenaon HC [facility] 2020-03-24 13:16:00 Kristine Salinas MD T) US PELVIS COMPLETE 2020-03-24 12:40:02 Kristine Salinas MD Ermias on US TRANSVAGINAL 2020-03-24 12:40:02 Kristine Salinas MD HEPATITIS C VIRUS ANTIBODY 2020-02-21 14:17:00 Kristine Salinas HC HIV 1/2 AG AND AB 4TH GEN 2020-02-21 14:17:00 Kristine Salinas MD ALPHA FETOPROTEIN TUMOR MARKER 2020-02-21 14:17:00 Kristine Salinas MD LACTATE DEHYDROGENASE 2020-02-21 14:17:00 Kristine Salinas MD And ralph HC BETA HCG TUMOR MARKER ([facility] 2020-02-21 14:17:00 Kristine Salinas MD T) TMP HIV 1/2 AG&AB PATH INTERP 2020-02-21 14:17:00 Kristine Salinas MD TMP HCVAB INTERP 2020-02-21 14:17:[address] CHEST ABDOMEN PELVIS W WO 2020-01-21 22:01:03 Kristine Salinas MD CONTRAST POC CREATININE 2020-01-21 21:24:00 Kristine Salinas MD HC 2019-NCOV COVID-19 2020-01-19 20:07:00 Lilliana Barillas MD And ralph PATHOLOGY OUTSIDE 2019-12-27 00:00:00 Rufino Acevedo MD INTERPRETATION OSI US PELVIC 2019-12-25 16:46:05 Lilliana Barillas MD OSI CT ABDOMEN AND PELVIS 2019-12-19 16:40:29 Lilliana Barillas MD Encounters Start End Encounter Admission Attending Care Care Encounter Source Date/Time Date/Time Type Type Clinicians Facility Department ID 2020-02-11 Outpatient DAVE RUFINO ACEVEDO MDA MDA [id number] 15:53:53 Anderso n 2020-02-11 Outpatient GEO GUARDADO [id number] 15:44:29 Anderso n 2020-01-23 Outpatient DAVE RUFINO ACEEVDO MDA MDA [id number] 12:18:11 Anderso n 2020-01-14 Outpatient GEO ZARAGOZA MDA [id number] 11:10:30 PROVIDER Ermias o john 2020-03-31 2020-03-31 Outpatient KRISTINE FUNEZ MDA MDA [id number] 00:00:00 00:00:00 Ermias o john 2020-03-31 2020-03-31 Outpatient DAVE BARILLAS MDA MDA [id number] 00:00:00 00:00:00 LILLIANA lopez 2020-03-24 2020-03-24 Outpatient DAVE BARILLAS, MDA MDA [id number] 13:17:17 13:33:42 LILLIANA lopez 2020-03-24 2020-03-24 Outpatient DAVE BARILLAS, MDA MDA [id number] MD 12:36:43 12:36:43 LILLIANA lopez 2020-03-24 2020-03-24 Outpatient KRISTINE FUNEZ MDA MDA [id number] 07:14:35 07:14:35 Ermias lopez 2020-03-24 2020-03-24 Outpatient KRISTINE FUNEZ MDA MDA [id number] 07:14:25 07:14:25 Ermias lopez 2020-03-24 2020-03-24 Outpatient KRISTINE FUNEZ MDA MDA [id number] 00:00:00 00:00:00 Ermias lopez 2020-03-24 2020-03-24 Outpatient KRISTINE FUNEZ MDA MDA [id number] 00:00:00 00:00:00 Ermias lopez 2020-02-21 2020-02-21 Outpatient KRISTINE FUNEZ MDA MDA [id number] 08:51:52 09:21:01 Ermias lopez 2020-01-24 2020-01-24 Outpatient KRISTINE FUNEZ MDA MDA [id number] 15:27:12 15:27:46 Ermias lopez 2020-01-21 2020-01-21 Outpatient KRISTINE FUNEZ MDA MDA [id number] 15:25:51 15:25:51 Ermias lopez 2020-01-21 2020-01-21 Outpatient DAVE BARILLAS, MDA MDA [id number] MD 11:34:51 11:34:51 LILLIANA lopez 2020-01-21 2020-01-21 Outpatient EL NARGIS, MDA MDA [id number] MD 11:34:45 11:34:45 LILLIANA lopez 2020-01-21 2020-01-21 Outpatient EL NARGIS, MDA MDA [id number] MD 11:34:39 11:34:39 LILLIANA lopez 2020-01-21 2020-01-21 Outpatient EL NARGIS, MDA MDA [id number] MD 11:34:34 11:34:34 LILLIANA lopez 2020-01-21 2020-01-21 Outpatient DAVE BARILLAS MDA MDA [id number] 11:34:29 11:34:29 LILLIANAJORDYN Hahnirena lopez 2020-01-21 2020-01-21 Outpatient DAVE BARILLAS MDA MDA [id number] 11:12:02 11:12:02 LILLIANAJORDYN Hahnirena lopez 2020-01-21 2020-01-21 Outpatient DAVE BARILLAS MDA MDA [id number] 10:51:00 11:06:54 LILLIANA lopez 2020-01-21 2020-01-21 Outpatient KRISTINE FUNEZ MDA MDA [id number] 00:00:00 00:00:00 Ermias lopez 2020-01-19 2020-01-19 Outpatient DAVE BARILLAS MDA MDA [id number] 14:51:40 14:51:40 LILLIANA lopez Results Test Description Test Time Test Comments Results Result [facility] e Comments US Pelvis Complete 2020-03-24 Unremarkable MD Brooke hebert 18:03:35 appearance of the residual left ovary. Right ovary surgically absent. Small fibroid noted within the posterior uterine body. Interface, Radiology Results In - 03/24/2020 1:05 PM CDTFULL RESULT:Examination : US PELVIS COMPLETE, US TRANSVAGINAL on 03/24/2020 7:40 AMClinical History: Malignant neoplasm of left ovaryIndication: Other:, history of mature teratomaComparison : 12/25/2019Technique : Grayscale and color Doppler ultrasound of the pelvis.Findings:Th e uterus measures 5.6 x 2.6 x 4 cm in maximum dimension is mildly heterogeneous in appearance small posterior uterine body fibroid noted measuring 0.7 x 0.5 x 0.7 cm.Endometrium measures 0.3 cm in thickness left ovary appears unremarkable measures 3 x 1.5 x 2.1 cm in maximum dimension physiologic follicles noted. Measuring up to 0.8 cm in diameter. No mass identified in the left adnexa.Right ovary surgically absent, no adnexal mass.IMPRESSION:Un remarkable appearance of the residual left ovary.Right ovary surgically absent.Small fibroid noted within the posterior uterine body. US Transvaginal 2020-03-24 Unremarkable MD Yves carmona 18:03:35 appearance of the residual left ovary. Right ovary surgically absent. Small fibroid noted within the posterior uterine body. Interface, Radiology Results In - 03/24/2020 1:05 PM CDTFULL RESULT:Examination : US PELVIS COMPLETE, US TRANSVAGINAL on 03/24/2020 7:40 AMClinical History: Malignant neoplasm of left ovaryIndication: Other:, history of mature teratomaComparison : 12/25/2019Technique : Grayscale and color Doppler ultrasound of the pelvis.Findings:Th e uterus measures 5.6 x 2.6 x 4 cm in maximum dimension is mildly heterogeneous in appearance small posterior uterine body fibroid noted measuring 0.7 x 0.5 x 0.7 cm.Endometrium measures 0.3 cm in thickness left ovary appears unremarkable measures 3 x 1.5 x 2.1 cm in maximum dimension physiologic follicles noted. Measuring up to 0.8 cm in diameter. No mass identified in the left adnexa.Right ovary surgically absent, no adnexal mass.IMPRESSION:Un remarkable appearance of the residual left ovary.Right ovary surgically absent.Small fibroid noted within the posterior uterine body. Pathology Outside Interpretation 2020-02-14 16:51:00 Test Item Value Reference Range Interpretation Comme nts Materials p9hkpDAvYNPeyUImEwJfBUGxSYKkb4aoFBIvpKCnRpUoZpBbLdXmMujswCNyJQGjLjEgw3xwr166rOMu d2saWCMgIuM0eLYdHVTcyDTyI509EGGaRVnsu7dmq9ToSKCiuDMgf7T5OORLpieqtWj4bPhrP36li0M2 FrcnR9tnBLVlVSGbB0RaOX3aPRHmCzl3JKN4YTM4BDQ Received uGDLrF3WoAQ0aTAEbxEUkXQl1z0xdyIgnSFCcQDE5r7gsRZsmheDaCL1uqg2hvWc6y6eimjEqZTOrRNF odODKQRKvY1XxpGgnPc6vsNo8aRqwMdfqYVJ4Woy1UK2kdg54fdg7hDomQCKfkwidMyW3PPvmIYEuslz gQOa2SJzrZRUbqAN9WFVmmOQzG4FlEGZbXX2bssd6ZH (test code Y0TPqyMDToHxH6YGDdbBUmXXTvxFitLXlrf439TKW6ZhJaFN7kD9Gfp5F4kH9xiIOvGNMsdZSkLsCxDT Xwga9ebHJbYRhry6KeSVJ4twT8eXXmmYUiZBOwID49Xxzjm5VnUxzap8BsJ64snQY7AZzmd6ymHT2eYi L8zdKdWXpay1nyfR6rDrW6APegLH6khg72FTJmJPT1p = 9973) k3ycXSzoLruqlVccUFrAQsrK1DjGAXcx841JXAbP2XzAXVxs1G3rlLcAqKdTDNidOH6acZ8RPQpUZd3j KFxnqR3ijMtgRJoM3xylT5hXMEeDS0lbyijd4awYUnaAChbDLAqbOK1ryZ1HJXrwGCtR4GtvA2uHPFhJ YgvYEFwjbj0LhUfDc3gyACbtSbgAVkoGrlsWJwhRIGt pgAaxlAqtEsjUNHoYLGyKCvaJINbTGyjHMDjKYQxJkPbeIOki3VtmGUnUYVcOLOimVMeeAPix4n2itSz TLEkQSZ6MOIinSCaRVYeK5s0bjAbPSCnTNC7RRRoyMNtEBVeW8s9csQzVKH9CGt6zbOsPQKjePThxOHz PENdUzBybMKwITUeLwUrLNXnhDXxkMDfeYGowO6uiLw hBFNroMQhgT2rMWW1ILp2zpPzf0uegNVocfEaoTWoR4amcdNbiAalccQeu1jlodNpqqDnOWOiOIUtBqQ sG1bnbiDsFwonkjHrr7psyaZsocXdUVKuRMSdMsJxM9eqjlEgtFuhhlJng0cifuEpuwRiRLSgNZQoEzF wE8nckiKvsngihuFgb9yakyZnamPkBAFiGGDcPcOcQ7 kxNSC3NAQtE0yqHVZmjLEpI9ivLCFqKBYvU4csBCCgsiAsN3prCLJcOAddiMZcMOQsL5rcgWWeQZZjXC ZlkRXqIyYlCTWcbFk6HCQaIApcgQDkkuPhjDFeT0gruoYjiFeouoDkm5jtzwCmjkCsLTIjCYFjFaRxF0 oltnOqTowuhlIcq3ybpgTeiaTwFFYjFUTeBmGfX6sng oSkuLhhlsYbs3lhrxUhktAcMGNuHJRxRlEwA5camtMkdhabziAlt3eqglZdzsFwRKPkSIIvRqBbK6isU RI4GVZkJ4lkCGApbHOtE2ydIAXhEPFsX2ldJBGxdaHbN9nqIWXwBHuwmWKbIIChS7xyhHKxXANfGPKnz SWpWqYoCSJgzAr8YwKsZIxcrOQatjKvgVWcJ3mixoYq gIcgixUof3owtrWmvnPyNZTyTUChHbAiR1rovbXcEpldcvNwl9vdrwPzfyKkVSTfZPDkTuPwC4dpiqSj fSxdkaJyd7nwwbEaerIsRPQeSWIeMcVdQ5rzfvLnksbvirHld1mpgwRvnqShXKStXRBtIkKeQ2bmQAW1 QTPlJ1baSKGzlUZpB9vdAZYpPIYxV5sxRIDsvrDvP3u fQEIbLCsmjAOqBQBsF1tsgPYsMAZuYUUhpRVpExOiXCOwxSm7MmizSLbaOYUsWYqmrGNxYJUnnGDxJPI 6kYLqflVxoDkdoKuwbN6qNmQrQiTmRYpmTV6fRZLfN7hkhQMnJBRkGQQnQ2rrBcLzcY7bgSpcSTmeTsU kMvOmAAqiVJKyJ2Wdw7jcixGxQVK1CQgcVTTgHFVhe0 FbASTIfkO8GVedKTQdrRazmV6nRhHbCoQxCTtwAC6mYLFnH0ddiBOyGNKiVKYbM3wsWrRucZ9swJevBG ycArCeRrOuIJlvzJMcdLclSFqxGDRftaUqnU26Kuyol5AiTWXeKDP1LBfcYBfdpGLpKYOtlHmrf2ahI4 BkoPMbHIMuKCxdDLKhRIFxQeFutBnnkC6rLyPpUoEhT GmeDR9zGSLfP3gsaLKsUMJzBJQaQ7adEtXsrA0waYeaFXccUeGiDuFaFXagZLUywRodQ7RlHOynmKDor qseOCpyhuLzSEetqqkuFHNwZXiaI3jcXdNtMCLrjKudGKxcl4WnQABbFCHhOjsrarDaVQe9qvIfXENzs SqwhSZgYMoeswJndOeqn0WuclBhoTblBCTkOTc7xuAf xhtufCd8xBYuuOijUYFptYksjS0aNhBsZsHcDFdwpXTyahvcDSramsEtSOsvftlzRETrIFunJ0sxYcFf HGZkgBrgXOsfi2YxDAIaHIWfWiyssdZiQPPnRqKyUYe2GHOewXigaN4zJnQnRzVqXUrhKR2yVNHsR6el jRCmLVSbIBCpJ0ooNmRnmX5ifGbuJWqmNzFnXzUjNUx hnCSzcYnqZAtgUVzdsHDeAAXyq7zkYOVsBMJxeSWsUTW4wYDnxyWjkTweiGjccO0bCsUtSvIvZDemnUK mimuoFVjjjpGqGFjglkooJJCpYCfyM6epWsZvDEUwvLngOXowx0TdJRVvNNBmDoKeh7sfvXLvKXTiy0a cZGVmbGFuZzEwMzNcZnRuYmpcdWMxIHtccnRmMVxzc3 EpB6SwOpTaNNnbmyMhTJEnWmddlrxvMJGgQLU1gpCjXVQxPPopRHWrZLpwAq2liBUtaJhzDnMsAGIbq3 gogrNMreqfeLa1x1vxIVYcNsD1oEWmMWliV2uxcgHodUWzLKBpRFz3sW85USSemE5pbMYmHBrraeMxAt D4COstTYOdElO9CKZrzQEeDHEcL9ljRPOlNZddKXElO YpbwRIjREI7qSwnr6G5yWJdpQWddGqcYtWaTqTaVoPPf9DhGIx2iMzoS5ScJVYyJkH1pZKlKEKtEVtvE MDjEXEfojR6gB98FEzmqdO0dMTum9Nxu35lq182hC5xrIKqXII4HFXoOCLvvXBjCBBxQQX5RJRuuIViH 3pyPQUwFW2hdvcfLYncNVskRVHelWT7XKCkxYInB3Ih JDJnOLynVWCbyai3YwOwCq4euHNauLeyZCvdq4mbr8gkaPZmRks5JAVjVvXfAmorAPqit4Fev1vuGQLd rk5pFBW4uTRfwHkrk5G8eWTyMMZsqHBvpsTyMJReAoU4GUmoZU9bhh15ZENqYNR7wz6pmBNqeGjvluEy pGPiVMboE7RnBZOyx055HDRdE1SmPRLcq9L6qeBjFhI lNZTrhKA7bbN0CUBfGLi2vNVovrC9auQhmIMfS1vkoD4mSTIfNV0mxhcdq4oaEDnlAUkwEIKjpTK3dpC 9ZFCieJHzT7EesN5kWEGaBOkgVMFvrrb6ImBaPs9bbFGykFsfGEchEvhxFVhlZHDdazCeaxVcpDeaUTK dZXMaQEgpFNVuARvyCCGrYJYwTrSapCCjt5TzdFBgUK FzWFZetZHmkPGku0f3biKuTKCwAKT9WECmfZKtJAGrN1w8ybOuDNAkOBN8NVOnkUCbKAQyR0w1tlChTG D5ELm1zxYiRUZqxJQygMQvXHDyZmOmuKGfFQRfJdZuRZXjtUNmeSLvuHQnbM5rgBxgRKDupAKaoG1vRT Z2SIMnwtwlFALmkSNavl04MOMzacZmnJQkqIsnoPQyK LQ2WJLmJZGjTKJkTTY8MDFrHzRatpHqWMjlvNXpGQZnAMYxZFGmNPFbCLY9VXEpCuRdovNbNPhgdZMrF KNnRJNaGEYrERPjCTD4DUBrFmOjkdVrOXwfjKPwNRKmOFDzOWPcEQDcIGH3IJTfSpOasnZkFEmhtFMfY WDuQChplZUsEJV9K7qujDJlTGRbYAimaMAvSJFpN0gr iJFvKIgcYWLdnKYcIrmhYSTndPDdBaKuK9ooLHGdIuTuM2JvsUj9ZkRjYQBexuCmjQMhrCiebDOtDRY9 PIRcNEHtNZKmWRI8QRHdNtIlhdBaCZcprDNlJZSmBTPoMXMoTSPgLLP8RCUlLyYcahQtEDbhqCJsXAEe OFWeGMVvABKtSTT4PYHjRiDbguGdBIjvkJIjCSCvUMY eVKDmDMKrUET5RECdFsNkxfVmRFigcLAnPZPlDLvqiHRwMYR6Y7lxdBDvBNRrTIkozPXiIHStQ0grxGT iFUonZGTvxGXyRhnwOTYlfOSyNdBdM0zvZATiXwLdM1EmdBd4JLPuDLXhhsKqzNZyaLsbqVPlKDR6WSX vKEYePGWbCOL8UFUxGxWidkJhSFljsKMnOZWkIROqJQ SgXFYyFUR2FYAqZrEstdRgPIpuxRVeAUQeCPOwJDDlLJIbCJC1LNCsOcPetzLbESseuVQeCSLxSATeWW QeDNAiQBY9CLSrQwPicxXlNSyxzFDxCWIoNZzwsIWdNJV7R3xjiTWiGFJoSJfviQHvUBNcJ6sroXKjUW voUVEwxYOzZxonMDJxjBFpYwJnL7rrKGWqFzQjI9Qhg Vx8JRVcZOJeenPyxQ47Lqxja6KwGQCiEUG3NIunSZlgwWnasGUxrdklYFlwhvCkJKqiluazHAHdTZnhB 6ugInLhWBByhMolIOqrj8GiTAFsCMQlSanvhiIiOIYjUQDcXyiSWmH7LFHpFLOKZikgYLATYH8XZ7LyZ DAgVVNTXHBsYWluXGYxXGZzMjBcbGFuZzEwMzNcaGlj aTciRDzlGiNiDMFvBIgrQ2fnDfAsS8AjCUYjDcRwuBAiI4fkW8SuvXjfVKSnNFyneIHjSKSnnFShZMH4 dGYcfiQtrFQxcDQlQSAhOKcrPZO9eVNbzuiywTTpjtmpQKdkyzN2NXYeFPyfTPXlUOBzKjZvuJZrQbZv GwTifKlafQpsMHppXqJuBPQiURjhA3ivZwSoY9ScGVL rNiWpAo3lXI8cXZIuBBQfOOriIVEiPQIvRmJysDMvVsWsJlWahWfruZtuSMmzZpExTNPyTPhtZ4rwHyI qA1IhTKTuFeCfzDOaQ5lwH2ZynWtqAINoHBkayXBgNPCwiBHnXLT3eKKxrnGxbVTatPYlLZUkNYttBMR 9lBBwdilttXAajqccLIlldcV9CUOpEFsxFXZtJCXkAh DhwXTgQaShXoUyiFpzbMwvQCmqZkEaRMOvHCvoV9ujJwMeK8SnZIGjLbEiOy9qFO6vIOAvJHCkOPnoTD KeXBFjNsGfcSQiFrAzNoUjzOagiJpjXIzhLhFxGOQkBWenP4xmAqQzG8XpQWTbIwStwEWcR6paJ1DynA fwfzJivHhpe0zqgXGlKLfhw9MlvjAguUlmZUKvUWKcO RFkUIvjBYJgOAPfGsEcyPakbS4wGgJxOwFuJYimVF6iNNUiF2tyyQRxRVVkYCPiF9tkQhKfjT5iiYfwL RniqaFrJTXlnx69EVQhxc3= Addendum 1 l9kofXFnTPCncAQ3IUByCYEal6sbt7FwbGCvfECtGNrbvYKiybMgge36nTY2eA09SD1kCUAjNwI6CBPm vmB5Sas2QGNyWYMrbYCjR333s4vwi0rebbYunQZ8dJxaGXQtHIGdTShyQULvTzQkLpAeBVn7mS5dBOmx qXJ1QQPxSIburwEuVMz4ICJos26bKd7oYR6eVUDfYWS (test code EtVYywPVkRZEpN7Rja5rgpxG3IXBsKxiLKdE1FLO0OSNTQKOgDDCDA0OTQDSxSDHIGscaE37vzCWmmTD dKE6jVTEiFEshWmAmQH9cQQkiEVDyyQArJMCnUGz2aN8yOOpvcQI2SUVrNLqpyE2vaWDbEDP2XPXfP3M 3WFJdcFSjnoEoKVIpTGZiQAQnn53fOGlmjkOkLHYrM1 = 37) tyYSUbsjS8PGstXVAsINVttWOeyiRhOTQextLqKfKoTWGvCNBqIQLozJQbrcSbjdUnxrP7aGK8JQKwUW NaVJA4oGOnNWNxmcKrumDhcZKwN9JgaT9xrWqlFZEtEIjtf2EjqyLgWI8gXRRjVOCtrkP0uZFpr8WhY8 hdVNuphoMkc3Z9EqHEdBGig9Yin9ClZLZdnP7nxILoR RcaquIlh3IoSGldI61zu6IkKwJnobLxqn5giZhkiq9iVRCawgdwHWG mYQ2xZuiruVZbmQ== Diagnosis h6osjRNsQYGfrYO7DDLcAACka7nxx0WzgINngHReUWxabVNrziZmyd24vXU0vM56GP5lJDUtBaB0WKCj jkT7Iux4VZDuCBZvlWHvF778t8dql7gvqfNbtSK4cDwbGJGoWFUlXBepDYBoRaQpZKwbddV6XY2pENKa sGRpjKXqAAFtaJYpobIuZWEaIKWrOagHEqB4APHkSRc (test code oDIEcYBncSrEwVZxhXSFiz3zxgiZ7YIYwVPNkTn4wcL18qnbupPNsLUAzecJsHUKqDAFnNRAgOJXWMLY 5YQ39NAIdPO7yB0usxCWhFI9hFIk5XDrdEYRtcEEnIGEcTBXjWGQqFZTvSDIwUH5ckYHfDSXatHV9tGO gdGVyYXRvbWFccGFyXHBhcn0= = 34) Comment z0ykcMOeTPVwtMO5HTKyQIIly4wyz5AhbSEsgYPjCCkugYUcefKayh65bQD5qP44UK4dOYAhTjB5MSVv xhY6Aby4YZTgDSJnvVJtE473w5bvr8poltGwrYX4xDbdKHCeJFIgJMqeWBQvEeLcGAKwMTYbFTZ3sLEd YdWzNKotyxivzGYrGUKiCDzxvcUbXFBeJLmaGSG3sYp (test code mIOGxe0DiKV1vZFBsdoJhycE5fCCqYNWrYDLkQz18TMYchUQsxi2yk XMuIFxwYXJ9 = 9835) [employer] t9rxfTEkEYFomUG4UOXpMTGqu3qhb6AbdBJjpPCbMDvfoJZxhuZaeh27wMC1oG07PU7gQCOtXyU6WLGm tvY4Nou7PNRcBKCpkGMaQ318w8yeg6fcccQqyEL9jVvfCAYkXRStXEksYOWjMvWhWVmATDRcok0= (s) (test code = 9863) Disclaimer v7swcWQpPPOyrXZuTsHeNKGdSFJlx3lgMJUrcDXiWoJzJoZvOnMxEjytvQRlRFUrGyJyy9pji643tCMx s1aiMEDsVaN5rOCgJOFdbZKpI042FRLrWSbwo8itt7KaTKPhoXUmv0F2YTERwmzkaXl4zJzsD44pt0H5 NxhsJ7qnDGQeYGQgR8EgNY7vTUWgOqp1ELE8RJN3JXM (test code rZWIeF1FeXO3uRBVeuJFtGSr1f7yujRukFUCaMBE2d4czQBmdieLhCO5gwk4dhAc9l2vdnfPuITAxWSJ ecIPGFBKnC0XzaCizYp7lsXe8aGtbZquaUAM4Zga2FM8bvv98ntj8xOwgDVIsryvbSvI8NHlaPOWfhjp sIYn0ZBjyWCWleAO6MISqfXNzK2UtFYJcAV7qrzm6YV = 9844) Q5EYglDYEhBlU9VXOppPOvMPYwtDykSQavi217OIH9KyPfJM7sH1Gwy2R7hC0ukKQwMQEzcKGuFvJlMQ Kgoi0dqEUyEIuql9VcRYD8pyM6bBDmyOKwXUMuEV70Pjyuc1LiYwdrJUY9MHBqthOzo2Vhq6wwPhZlcv EcK2hpP3LrZRQsAIRcFDIqJxDgwsVbw9Nff8BelSTqo Cx9c0jrKIFcQBDokTlej6mcBNK2QNBiE7A1dLEnd5toLVpoESYwdTH5idV0ODMznZVqB9WrsV7bKNOhC S9grpp3l5ooPLP5KTfdSGQuKdX8nzZ9MYXktJXaEDRwuJkzIBejy522FPX6XfNvQVFem5UzA6ScwXqzI 57inMxtR26fECOksNxrtS5feBmycB5bAxSuLoJfPDgk lQbfeWAsdrmgAJtbtfB7UFhsdsfgMYYjTVunQ7iwRlRzNEAfzAnqRRjuo1SvURNhSWHmRwdsyqU8LOHP n27hXPWhf6AdZOSgyQ9mtERbSVaoxjEmuAJ2EWnxsuIjIzIxfuGfMDGqtM8gBGGgYU8dLAVgolCmhn1z xwOfMWHhPRLtP7QcnxpiyUuvrrXrERCfxs7kccQxFMY 6QTDCLT1IYOLgFPDmk48gLQCivPcigS0zqCBszdLfOGAog0PjkU4kyFUMTAQoU1fgXG8mASjtj6UuoBJ qsCCzoRF6WEGti0BsVsByplRilEEdmWEeO7BtsPwkX6qaKOSlPCJonuEimKQxc6PmVCDaoBQ1pWAxKQ6 QQuHNi04jCLIyZZAKpdWtMDSmzLfzxRC7rkS5oP8tVp HGZaJdwLDezVXbCrpiPMKlo683eh1svhO4IDWtEGAcbvmeu1IlMSNpUFDiwQ74GWVbMYZgzc3rvsjwyI GqurIuY1Tdvpm7rJ0oHEPnGViqGSWuTXOyBcYhvPQzPoHuBxJhtIawmCttZPcxWvFhWHHrFTocN2nwEa FcZnMyMlxwYXJ9 MD [facility] Chest Abdomen Pelvis with and without [id number] 13:57:22 Interval resection of the left ovarian teratoma since the outside study of 12/19/2019, without CT evidence of metastatic disease in the chest, abdomen or pelvis. Interface, Radiology Results In - 01/22/2020 8:59 AM CDTFULL RESULT:Examination: CT CHEST ABDOMEN PELVIS W WO CONTRAST, 01/21/2020 5:01 PMCl inical History: Malignant neoplasm of left ovaryIndication: immature teratoma of left ovary; note: right ovary surgically absentComparison: Outside CT abdomen and pelvis 12/19/2019 and 04/04/2018Technique: CT of the abdomen was performed without intravenous contrast followed by CT of the chest, abdomen,and pelvis with intravenous contrast.Findings: Chest:There are no enlarged lymph nodes identified inthe chest.No significant pulmonary parenchymal disease is seen by CT.Abdomen and pelvis:Minute low-attenuation foci in the right liver are stable since 2018 and likely small cysts. There is some focal fatty infiltration along the falciform ligament. The gallbladder is absent. There is no biliary obstru ction.The spleen is not enlarged.The pancreas and adrenal glands are unremarkable.The kidneys function without hydronephrosis.The uterus is identified. The left ovarian teratoma has been resected since12/19/2019. No adnexal masses are presently seen. There are multiple unopacified loops of bowel identified in the pelvis.No enlarged lymph nodes are identified in the abdomen or pelvis.IMPRESSION:Interval resection of the left ovarian teratoma since the outside study of 12/19/2019, without CT evidence of metastatic disease in the chest, abdomen or pelvis.[facility] [id number] 21:40:26 Test Item Value Reference Range Interpretation Comments POC Crea (test 0.7 mg/dL 0.6-1.3 Medications, especially code = hydroxyurea or supplements, 64188-7) such as ascorba te, can interfere with test results causing a false ly and significantlyhi gher result than expected. If a problem is suspected wi th a patient's resul t, a sample should be sent to the laboratory for confirmatory testing. POC eGFR-AA 134 >=60 mL/min/1.73 Normal eGFR >= 60 (test code = m2 mL/min/1.73 [place]2 [place] [address]-6) calculated in g the CKD-EPI equation. The e GFR declines with age. eGFR <60 mL/min/1.73 m2 is considered as "decreased" This equation should only be used for patients 18 and older. According to th e [employer]'s Kidney Disease Outcome Quality Initiative (KDO QI) classification and 2012 Kidney Disease Improving Global Outcomes (KDIGO) Clinical Practi ce Guideline, the stage of CK D should be categorized bas ed on estimated GFR. Stage Description GFR mL/min/1.73 m21 Kidney garrett ge with normal or high GFR >=902 Kidney damage w ith mild decrease in GFR 60-893a Mild to moderat e decrease in GFR 45-593b Moderate to severe decrease in GFR 30-444 Severe d ecrease in GFR 15-295 K idney failure <15 (or brigid lysis) POC eGFR-RIMA 115 >=60 mL/min/1.73 Normal eGFR >= 60 (test code = m2 mL/min/1.73 [place]2 [place] [address]-4) calculated usin g the CKD-EPI equation. The e GFR declines with age. eGFR <60 mL/min/1.73 m2 is considered as "decreased" This equation should only be used for patients 18 and older. According to th e [employer] on's Kidney Disease Outcome Quality Initiative (KDO QI) classification and 2012 Kidney Disease Improving Global Outcomes (KDIGO) Clinical Practi ce Guideline, the stage of CK D should be categorized bas ed on estimated GFR. Stage Description GFR mL/min/1.73 m21 Kidney garrett ge with normal or high GFR >=902 Kidney damage w ith mild decrease in GFR 60-893a Mild to moderat e decrease in GFR 45-593b Moderate to severe decrease in GFR 30-444 Severe d ecrease in GFR 15-295 K idney failure <15 (or brigid lysis) POC Clean Dev Yes (test code = 6672) MD [place] [id number] 16:46:16For comparison only. No interpretation requested.MD [place] CT Abdomen and [id number] 16:40:42 For comparison only. No interpretation requested.MD [place] COVID-19 (CHAZ-CoV-2) PCR [id number] 18:16:00 Test Item Value Reference Interpretation Comments Range COVID19 SARS New Patient Indication (test code = 95253) COVID19 SARS Result Not Detected Not Detected (test code = 93185-0) COVID19 SARS SARS-CoV-2 NOT Detected. Interpretation (test Reference Range: Not code = 41424) Detected Methodology: [employer] SARS-CoV-2 assay is a qualitative real-time reverse primary substance abuse counselor polymerase chain reaction (human performance professor-PCR) test to detect RNA from SARS-CoV-2 in nasal, nasopharyngeal and oropharyngeal swabs from patients with signs and symptoms of infection who are suspected of COVID-19 by their health care provider. The Nunez RealTime SARS-CoV-2 performed on the Keenjar000 System is a dual target assay with primers and probes for the RdRp and N genes. Results must be interpreted within the context of all relevant clinical and laboratory findings, and epidemiological risk factors. Positive results are indicative of the presence of SARS-CoV-2 RNA; clinical correlation with patient history and other diagnostic information is necessary to determine patient infection status. Positive results do not rule out bacterial infection or co-infection with other viruses. Negative results do not preclude SARS-CoV-2 infection and should not be used as the sole basis for patient management decisions. The Dizko Samurai RealTime SARS-CoV-2 assay is for in vitro diagnostic use under FDA Emergency Use Authorization only. Testing is limited to laboratories certified under the Clinical Laboratory Improvement Amendments of 1988 (CLIA), 42U.S.C. 263a, to perform high complexity tests. The Test was performed by the CLIA-certified, high-complexity Molecular Diagnostics Laboratory (MDL) at [facility] under the Food and Drug Administration (FDA) s Emergency Use Authorization. Factsheet for patients: https://www.DistalMotionnderson.org/ AbbottFactSheetPatientsFact sheet for healthcare providers: https://www.mdanderson.org/ AbbottFactSheetHCP Test performed by:[facility] [address] [place] [address] [place] [id number] 08:11:00 Test Item Value Reference Range Interpretation Comments CA 125 (test 4.2 U/mL 0.0-38.1 Eric Diagnosti cs code = CA125) Electrochemilu minescence Immunoassay(ECL IA)Values obtained with d ifferent assay methods or kits cannotbe used interchangeably . Results cannot be interpreted asabsolute evidence of the presence or absence of malignantdiseas e.Performed At: [facility] [address] [place], [place] [id number] Carlos Reid MD Ph:[phone] - US PELVIC [id number] 15:26:00 Name: SKYLAR NEELY [facility] : 1990 Age/S: 29 / F [address] Unit #: [id number] Loc: [place] [address] Phys: Undefined Provider Acct: [id number] Dis Date: Status: REG CLI PHONE #: [phone] Exam Date: 12/25/2019 6875 FAX #: Reason: Pelvic pain EXAMS: CPT: [id number] US PELVIC COMPLETE 60774 EXAM: - USTRANSVAGINAL NON OB, - US [...] Carleen Salinas MD CC: Technologist: Tanya Liu [facility] Date/Time: 12/25/2019 (1526) [email or web address] PAGE 1 Signed Report N dm: SKYLAR NEELY [place] : 1990 Age/S: 29/ F [address] Unit #: [id number] Loc: [place] [address] Phys: Undefined Provider Acct: [id number] Dis Date: Status: REG CLI PHONE #: [phone] Exam Date: 12/25/2019 1451 FAX #: Reason: Pelvic pain EXAMS: CPT: [id number] US PELVIC COMPLETE 11854 <Continued> Orig Print D/T: S: 12/25/2019 (1530) Probe: PAGE 2 Signed Report- US TRANSVAGINAL NON [id number] 15:26:00 Name: SKYLAR NEELY : 1990 Age/S: 29 / F [address] Unit #: [id number] Loc: [place] [address] Phys: Undefined Provider Acct: [id number] Dis Date: Status: REG CLI PHONE #: [phone] Exam Date: 12/25/2019 1451 FAX #: Reason: PELVIC PAIN EXAMS: CPT: [id number] [place] [address] EXAM: - USTRANSVAGINAL NON OB, - US [...] Technologist: Tanya Liu Trnscb Date/Time: 12/25/2019 (1526) [id number] PAGE 1 Signed Report N dm: SKYLAR NEELYland : 1990 Age/S: 29/ F [address] Unit #: [id number] Loc: [place] [address] Phys: Undefined Provider Acct: [id number] Dis Date: Status: REG CLI PHONE #: [phone] Exam Date: 12/25/2019 1458 FAX #: Reason: PELVIC PAIN EXAMS: CPT: [id number] [place] [address] <Continued> Orig Print D/T: S: 12/25/2019 (1530) Probe: [id number] PAGE 2 Signed Report- CT ABD PELVIS W WO [id number] 09:06:00 Name: CHINSKYLARRYAN OROZCO [place] : 1990 Age/S: 29 / F [address] Unit #: [id number] Loc: [place] [address] Phys: Undefined Provider Acct: [id number] Dis Date: Status: DEP CLI PHONE #: [phone] Exam Date: 12/19/2019 1515 FAX #: Reason: NAUSEA,CONSTIPATION, PAINFUL RECTAL BLEEING Report Has Been Amended EXAMS: CPT: [id number] CT ABD PELVIS W WO CONT 29697 Addendum - 12/20/2019 SIGNED 12/20/2019 ADDENDUM: [id number] CT/CTABPLWWO Oral contrast was administered for the examination, oral contrast reaches to the level of mid small bowel loops. at 0906 Reported and signed by: Norris Lynch M.D. Transcribed: 12/20/2019 (09) Carline.ANS4 Report EXAMINATION: - CT ABD PELVIS W [...] NEELY : 1990 Age/S: 29 / F Alfredo Torres Unit #: [id number] Loc: [place] [address] Phys: Undefined Provider Acct: [id number] Dis Date: Status: DEP CLI PHONE #: [phone] Exam Date: 12/19/20191514 FAX #: Reason: NAUSEA, CONSTIPATION, PAINFUL RECTAL BLEEING Report Has Been Amended EXAMS: CPT: [id number] CT ABD PELVIS W WO CONT 68439 <Continued> No abdominal or pelvic bulky lymphadenopathy [...] left adnexa containing internal calcifications, indicative of dermoid/terato ma. Electronically Signed by George Lynch on 12/19/2019 at 1601 Reported and signed by: Norris Lynch M.D. CC: Technologist:Tory Stiles, RT(R);... CTDI: DLP: Trnscb Date/Time: 12/19/2019 (1601) [email or web address] Print D/T: S: 12/19/2019 (0012) PAGE 2 Signed Report- CT ABD PELVIS W WO [id number] 16:01:00 Name: SKYLAR NEELY : 1990 Age/S: 29 / F [address] Unit #: [id number] Loc: [place] [address] Phys: Undefined Provider Acct: [id number] Dis Date: Status: REG CLI PHONE #: [phone] Exam Date: 12/19/2019 1515 FAX #: Reason: NAUSEA, CONSTIPATION, PAINFUL RECTAL BLEEING EXAMS: CPT: [id number] CT ABD PELVIS W WO CONT 25263 EXAMINATION: - CT ABD PELVIS W WO [...] 1 Signed Report (CONTINUED) Name: SKYLAR NEELY [facility] : 1990 Age/S: 29 / F [address] Unit #: [id number] Loc: [place] [address] Phys: Undefined Provider Acct: [id number] Dis Date: Status: REG CLI PHONE #: [phone] Exam Date: 12/19/2019 6482 FAX #: Reason: NAUSEA, CONSTIPATION, PAINFUL RECTAL BLEEING EXAMS: CPT: [id number] CT ABD PELVIS W WO CONT 06709 <Continued> 6.8 x 5.1 cm fat attenuation structure inleft adnexa containing internal calcifications, indicative of dermoid/teratoma. [id number] Reported and signed by: Norris Lynch M.D. CC: Technologist:Tory Stiles RT(R); ... CTDI: DLP: Trnscb Date/Time: 12/19/2019 (160) t.[email or web address].[email or web address] Orig Print D/T: S: 12/19/2019 (1604) PAGE 2 Signed ReportHIGH SENSITIVITY [id number] 08:35:00 Test Item Value Reference Range Interpretation Comments HIGH SENSITIVITY CRP 10.75 mg/L 0.00-3.00 A Relative Risk (test code = CRPHS) for Futu re Cardiovascular Event Low <1.00 [place] ge 1.00 - 3.00 High >3.00Performed At: [facility] [address] [id number] ruben Reid MD Ph:[phone] [facility] COMPREHENSIVE METABOLIC [id number] 08:01:00 Test Item Value Reference Range Interpretation [...] LDL/HDL) 3.02 Ratio 1.48-3.22 Avg N SERUM [id number] 08:01:00 Test Item Value Reference Range Interpretation Comments SERUM IRON (test code = IRON) 50 mcG/DL 50-170 N VITAMIN [id number] 08:01:00 Test Item Value Reference Range Interpretation Comments VITAMIN B12 (test code = VITB12) 316 PG/ML 183-986 N FOLIC [id number] 08:01:00 Test Item Value Reference Range Interpretation Comments FOLIC ACID (test code = FOL) 18.90 NG/ML 3.10-17.50 H T3 [id number] 08:01:00 Test Item Value Reference Range Interpretation Comments T3 FREE (test code = 2.8 pg/mL 2.0-4.4 Perform ed At: [facility] T3F) [address] [id number] Kyle L MD Ph:[phone] T4 [id number] 08:01:00 Test Item Value Reference Range Interpretation Comments T4 FREE (test code = T4F) 0.95 NG/DL 0.89-1.76 N THYROID STIMULATING [id number] 08:01:00 Test Item Value Reference Range Interpretation Comments THYROID STIMULATING HORMONE 0.382 mcIU/ML 0.340-4.820 N (test code = TSH) [id number] 08:01:00 Test Item Value Reference Range Interpretation Comments LITHIUM (test 0.2 mmol/L 0.6-1.2 L code = LITH) Detection Limit = 0.1 <0.1 indicate s None DetectedPerform ed At: [facility] [address] [id number] Reid MD Ph:[phone] VITAMIN D [id number] 08:01:00 Test Item Value Reference Range Interpretation Comments VITAMIN D 22.1 ng/mL 30.0-100.0 A Vitamin D defic iency has 25-HYDROXY (test been define d by the code = VITD25) [place] [facility] ed[facility] and an Endocrine So ciety practice guidel ine as alevel of serum 25-OH vitamin D less than 20 ng/mL (1,2).The Endocrine Society went on to further define vitamin Dinsufficiency as a level between 21 and 29 ng/mL (2).1. IOM (Ins titute of Medicine). 2010 . Dietary reference int akes for calcium and D. [place]: The [employer] .2. Bryon MF, Alissa NC, Natty i BLEDSOE, et al. Evaluatio n, treatment, and prevention of vitamin D deficiency: an Endocrine Society clinica l practice guideline. STEFANO EM. 2010; 96(7):1911-30.P erformed At: [facility] [address] [place], [place] [id number] Carlos Reid MD Ph:[phone] COMPREHENSIVE METABOLIC [id number] 05:09:00 Test Item Value Reference Range Interpretation [...] LDL/HDL) 3.02 Ratio 1.48-3.22 Avg N SERUM [id number] 05:09:00 Test Item Value Reference Range Interpretation Comments SERUM IRON (test code = IRON) 50 mcG/DL 50-170 N VITAMIN [id number] 05:09:00 Test Item Value Reference Range Interpretation Comments VITAMIN B12 (test code = VITB12) 316 PG/ML 183-986 N FOLIC [id number] 05:09:00 Test Item Value Reference Range Interpretation Comments FOLIC ACID (test code = FOL) 18.90 NG/ML 3.10-17.50 H T3 [id number] 05:09:00 Test Item Value Reference Range Interpretation Comments T3 FREE (test code = 2.8 pg/mL 2.0-4.4 Perform ed At: [facility] T3F) [address] [place], [place] [id number] Carlos Reid MD Ph:[phone] T4 [id number] 05:09:00 Test Item Value Reference Range Interpretation Comments T4 FREE (test code = T4F) 0.95 NG/DL 0.89-1.76 N THYROID STIMULATING [id number] 05:09:00 Test Item Value Reference Range Interpretation Comments THYROID STIMULATING HORMONE 0.382 mcIU/ML 0.340-4.820 N (test code = TSH) [id number] 05:09:00 Test Item Value Reference Range Interpretation Comments LITHIUM (test code = LITH) MMOL/L 0.6-1.2 VITAMIN D [id number] 05:09:00 Test Item Value Reference Range Interpretation Comments VITAMIN D 22.1 ng/mL 30.0-100.0 A Vitamin D defic iency has 25-HYDROXY (test been define d by the code = VITD25) [facility] edicine and an Endocrine So [facility] practice guidel ine as alevel of serum 25-OH vitamin D less than 20 ng/mL (1,2).The Endocrine Society went on to further define vitamin Dinsufficiency as a level between 21 and 29 ng/mL (2).1. IOM (Ins titute of Medicine). 2010 . Dietary reference int akes for calcium and D. [place]: [employer] .2. Bryon MF, Alissa NC, Natty bucio BLEDSOE, et al. Evaluatio n, treatment, and prevention of vitamin D deficiency: an Endocrine Society clinica l practice guideline. STEFANO EM. 2010; 96(7):1911-30.P erformed At: [facility] [address] [place], [place] [id number] Kyle L MD Ph:[phone] COMPREHENSIVE METABOLIC [id number] 04:07:00 Test Item Value Reference Range Interpretation [...] LDL/HDL) 3.02 Ratio 1.48-3.22 Avg N SERUM [id number] 04:07:00 Test Item Value Reference Range Interpretation Comments SERUM IRON (test code = IRON) 50 mcG/DL 50-170 N VITAMIN [id number] 04:07:00 Test Item Value Reference Range Interpretation Comments VITAMIN B12 (test code = VITB12) 316 PG/ML 183-986 N FOLIC [id number] 04:07:00 Test Item Value Reference Range Interpretation Comments FOLIC ACID (test code = FOL) 18.90 NG/ML 3.10-17.50 H T3 [id number] 04:07:00 Test Item Value Reference Range Interpretation Comments T3 FREE (test code = 2.8 pg/mL 2.0-4.4 Perform ed At: [facility] T3F) [address] [place], [place] [id number] Kyle L MD Ph:[phone] T4 [id number] 04:07:00 Test Item Value Reference Range Interpretation Comments T4 FREE (test code = T4F) 0.95 NG/DL 0.89-1.76 N THYROID STIMULATING [id number] 04:07:00 Test Item Value Reference Range Interpretation Comments THYROID STIMULATING HORMONE 0.382 mcIU/ML 0.340-4.820 N (test code = TSH) [id number] 04:07:00 Test Item Value Reference Range Interpretation Comments LITHIUM (test code = LITH) MMOL/L 0.6-1.2 VITAMIN D [id number] 04:07:00 Test Item Value Reference Range Interpretation Comments VITAMIN D 25-HYDROXY (test code = VITD25) COMPREHENSIVE METABOLIC [id number] 16:27:00 Test Item Value Reference Range Interpretation [...] LDL/HDL) 3.02 Ratio 1.48-3.22 Avg N SERUM [id number] 16:27:00 Test Item Value Reference Range Interpretation Comments SERUM IRON (test code = IRON) 50 mcG/DL 50-170 N VITAMIN [id number] 16:27:00 Test Item Value Reference Range Interpretation Comments VITAMIN B12 (test code = VITB12) 316 PG/ML 183-986 N FOLIC [id number] 16:27:00 Test Item Value Reference Range Interpretation Comments FOLIC ACID (test code = FOL) 18.90 NG/ML 3.10-17.50 H T3 [id number] 16:27:00 Test Item Value Reference Range Interpretation Comments T3 FREE (test code = T3F) T4 [id number] 16:27:00 Test Item Value Reference Range Interpretation Comments T4 FREE (test code = T4F) 0.95 NG/DL 0.89-1.76 N THYROID STIMULATING [id number] 16:27:00 Test Item Value Reference Range Interpretation Comments THYROID STIMULATING HORMONE 0.382 mcIU/ML 0.340-4.820 N (test code = TSH) [id number] 16:27:00 Test Item Value Reference Range Interpretation Comments LITHIUM (test code = LITH) MMOL/L 0.6-1.2 VITAMIN D [id number] 16:27:00 Test Item Value Reference Range Interpretation Comments VITAMIN D 25-HYDROXY (test code = VITD25) GLYCOSYLATED HEMOGLOBIN [id number] 15:32:00 Test Item Value Reference Range Interpretation Comments GLYCOSYLATED HEMOGLOBIN (HA1C) 5.3 % A1C 0.0-5.7 N (test code = GLYHGB) ESTIMATED AVERAGE GLUCOSE (test 105 MG/DLest code = EAG) CBC W/AUTO [id number] 15:07:00 Test Item Value Reference Range Interpretation [...]
[2020-04-20 04:51] LABS: Absolute Lymphocytes (CBC) 3.7 K/uL (0.7-4.9); Basophils % 0.7 % (0-1.3); Hematocrit 36.9 % (36.0-45.0); Lymphocytes % 39.9 % (15.3-44.8); RBC Red Blood Cell Count 4.28 M/uL (3.86-4.86)
[2020-04-20] MEDS ORDERED: MORPHINE 4 MG/ML SYR ONE (04:54)
[2020-04-20] MEDS ORDERED: ONDANSETRON 4 MG/2 ML VIAL ONE ×2 (04:54→07:23)
[2020-04-20 05:11] LABS: ALT/SGPT 18 U/L (12-78); AST/SGOT 13 U/L (15-37); Albumin 3.8 g/dL (3.4-5.0); Alkaline Phosphatase 73 U/L (45-117); BUN Blood Urea Nitrogen 12 mg/dL (7-18); Bicarbonate 25 mmol/L (21-32); Bilirubin Direct < 0.1 mg/dL (0-0.2); Bilirubin Total 0.3 mg/dL (0.2-1.0); Glucose Level 80 mg/dL (74-106); Lipase 81 U/L (73-393); Potassium 4.1 mmol/L (3.5-5.1); Protein, Total 7.8 g/dL (6.4-8.2); Sodium Level 140 mmol/L (136-145)
[2020-04-20] MEDS ORDERED: FENTANYL CITR 100 MCG/2 ML ONE (05:48)
[2020-04-20 06:02] LABS: Urine Blood TRACE (NEG); Urine Glucose NEGATIVE (NEG); Urine Protein NEGATIVE (NEG); Urine pH 7.5 (5.0-7.0)
[2020-04-20] MEDS ORDERED: HYDROMORPHONE HCL 1 MG/ML INJ ONE (07:02)
--- NOTE | 2020-04-20 09:08 | RAD REPORT ---
EXAM DESCRIPTION: US - Pelvis Complete - 04/20/2020 8:38 am CLINICAL HISTORY: Pelvic pain COMPARISON: CT April 20, 2020 FINDINGS: The uterus measures 6 x 3 x 4cm. The endometrial stripe measures 3 millimeters. .A fibroid is not seen. The right ovary is been removed. Right adnexal unremarkable. Left ovary is normal in size and echotexture with blood flow. It contains multiple small follicles. L eft adnexal unremarkable. No significant free fluid is seen. IMPRESSION: No acute abnormality is displayed
--- NOTE | 2020-04-20 09:45 | ER ---
Nurse's Notes [facility] [place] [place] Name: Marie Doe Age: 29 yrs Sex: Female : 1990 Arrival Date: 04/20/2020 Time: 03:55 Bed 17 Private MD: Diagnosis: Pelvic pain Presentation: 04/20 04:14 Chief complaint: Patient states: I woke up Tuesday morning with left lower quadrant tl1 pain. The pain is sharp and shooting and radiates to my left flank. I was diagnosed with ovarian cancer and had surgery in January to remove a portion of my left ovary. Coronavirus screen: Client denies travel out of the [place] in the last 14 days. At this time, the client does not indicate any symptoms associated with coronavirus-19. Ebola Screen: Patient negative for fever greater than or equal to 101.5 degrees Fahrenheit, and additional compatible Ebola Virus Disease symptoms Patient denies exposure to infectious person. Patient denies travel to an Ebola-affected area in the 21 days before illness onset. Initial Sepsis Screen: Does the patient meet any 2 criteria? No. Patient's initial sepsis screen is negative. Does the patient have a suspected source of infection? No. Patient's initial sepsis screen is negative. Risk Assessment: Do you want to hurt yourself or someone else? Patient reports no desire to harm self or others. Onset of symptoms was April 19, 2020. 04:14 Method Of Arrival: Ambulatory tl1 04:14 Acuity: LILLIAN 3 tl1 HYDRAULIC RIVETER: 04:27 LMP N/A - control method bb Historical: - Allergies: 04:21 Minocycline; tl1 04:21 atropine eye drops; tl1 - Home Meds: 04:21 [place] Carbonate Oral [Active]; Risperdal Oral [Active]; tl1 - PMHx: 04:21 insomnia; PCOS; tl1 - PSHx: 04:21 breast reduction; Tonsillectomy; Cholecystectomy; Appendectomy; eye surgery; tl1 oophorectomy; - Immunization history:: Adult Immunizations up to date. - Social history:: Smoking status: Patient denies any tobacco usage or history of. Patient/guardian denies using alcohol, street drugs. Screenin:24 Abuse screen: Denies threats or abuse. Nutritional screening: No deficits noted. bb Tuberculosis screening: No symptoms or risk factors identified. Fall Risk None identified. Assessment: 04:24 General: Appears uncomfortable, Behavior is calm, cooperative. Pain: Complains of pain bb in left lower quadrant Pain currently is 9 out of 10 on a pain scale. Quality of pain is described as sharp, Also complains of nausea. Neuro: Level of Consciousness is awake, alert, obeys commands, Oriented to person, place, time, situation. Cardiovascular: Capillary refill < 3 seconds Patient's skin is warm and dry. Respiratory: Airway is patent Respiratory effort is even, unlabored, Respiratory pattern is regular. GI: Bowel sounds present X 4 quads. Abd is soft X 4 quads Abdomen is tender to palpation in left lower quadrant. Musculoskeletal: Circulation, motion, and sensation intact. 05:29 Reassessment: Patient is alert, oriented x 3, equal unlabored respirations, skin bb warm/dry/pink. pt states pain is starting to get a little worse Dr Brady notified new orders received see MAR. 05:32 Reassessment: pt to CT scan via wheelchair accompanied by echo technician. bb 05:50 Reassessment: Patient is alert, oriented x 3, equal unlabored respirations, skin bb warm/dry/pink. pt returned from CT. 06:50 Reassessment: pt c/o pain returning to 03/20 Dr Brady notified new orders received pt bb medicated see MAR, pt awaiting US. 07:10 General: Appears uncomfortable, Behavior is calm, cooperative. Pain: Complains of pain em in left lower quadrant Pain currently is 7 out of 10 on a pain scale. Pain began 1 day ago. Neuro: Level of Consciousness is awake, alert, obeys commands, Oriented to person, place, time, situation. Cardiovascular: Capillary refill < 3 seconds Patient's skin is warm and dry. Respiratory: Airway is patent Respiratory effort is even, unlabored, Respiratory pattern is regular. GI: Reports nausea, vomiting. Derm: Skin is intact, is healthy with good turgor, Skin is pink, warm \T\ dry. Musculoskeletal: Capillary refill < 3 seconds. 08:17 Reassessment: US at bedside. em 09:56 Reassessment: Patient appears in no apparent distress at this time. Patient and/or em family updated on plan of care and expected duration. Pain level reassessed. 10:05 Reassessment: pending copy of CT so pt can take to follow up with OB. em Vital Signs: 04:14 BP 135 / 65; Pulse 74; Resp 17; Temp 98.6; Pulse Ox 98% ; Weight 102.51 kg; Height 5 tl1 ft. 10 in. (177.80 cm); Pain 9/10; 05:33 BP 115 / 66; Pulse 67; Resp 14 S; Pulse Ox 97% on R/A; bb 06:56 BP 115 / 74; Pulse 81; Resp 16 S; Pulse Ox 98% on R/A; Pain 9/10; bb 07:15 BP 118 / 74; Pulse 74; Resp 18; Pulse Ox 97% on R/A; Pain 7/10; em 08:28 BP 107 / 61; Pulse 71; Resp 18; Pulse Ox 98% on R/A; em 09:56 BP 107 / 67; Pulse 70; Resp 18; Pulse Ox 98% on R/A; em 04:14 Body Mass Index 32.43 (102.51 kg, 177.80 cm) tl1 ED Course: 03:55 Patient arrived in ED. ag3 04:15 Initial lab(s) drawn, by me, sent to lab. Inserted saline lock: 20 gauge in right bb antecubital area, using aseptic technique. Blood collected. 04:16 Triage completed. tl1 04:21 Arm band placed on left wrist. tl1 04:24 Bnig Brumfield, RN is Primary Nurse. bb 04:24 Patient has correct armband on for positive identification. Bed in low position. Call bb light in reach. Side rails up X 1. Adult w/ patient. Pulse ox on. NIBP on. Warm blanket given. 04:30 Carlos Brady MD is Attending Physician. tw4 05:44 CT Abd/Pelvis - IV Contrast Only In Process Unspecified. EDMS 06:33 called and left message with Dr. Dasilva's answering service to please call Dr. Brady eb regarding her patient. 07:15 Attending Physician role handed off by Carlos Brady MD ps1 07:15 Johnnie Vizcaino MD is Attending Physician. ps1 08:38 Pelvis Complete In Process Unspecified. EDMS 08:51 US Pelvis Complete In Process Unspecified. EDMS 09:[address] Dasilva with Dr. Vizcaino for patient consultation. eb 09:43 Shaye Dasilva MD is Referral Physician. ps1 10:02 No provider procedures requiring assistance completed. IV discontinued, intact, em bleeding controlled, No redness/swelling at site. Pressure dressing applied. Administered Medications: 04:51 Drug: morphine 4 mg Route: IVP; Site: right antecubital; bb 05:31 Follow up: Response: No adverse reaction; Pain is decreased bb 04:51 Drug: Zofran (Ondansetron) 4 mg Route: IVP; Site: right antecubital; bb 05:31 Follow up: Response: No adverse reaction bb 05:45 Drug: fentaNYL (PF) 50 mcg Route: IVP; Site: right antecubital; bb 06:51 Follow up: Response: No change in condition bb 06:51 Drug: Dilaudid 1 mg {Note: RASS 0.} Route: IVP; Site: right antecubital; bb 07:38 Follow up: Response: No adverse reaction; Marked relief of symptoms; Pain is decreased em 07:14 Drug: Zofran (Ondansetron) 4 mg Route: IVP; Site: right antecubital; em 07:39 Follow up: Response: No adverse reaction; Marked relief of symptoms; Nausea is decreasedem Outcome: 09:44 Discharge ordered by . ps1 10:10 Discharged to home ambulatory, with family. em 10:10 Condition: improved 10:10 Discharge instructions given to patient, Instructed on discharge instructions, follow up and referral plans. medication usage, Demonstrated understanding of instructions, follow-up care, medications, Prescriptions given X 2. 10:20 Patient left the ED. em Signatures: Dispatcher [employer] Russell Alonso RN RN Bing Lopez RN RN bb Gris Bo RN RN tl1 Johnnie Vizcaino MD MD ps1 Carlos Brady MD MD tw4 Carleen Jeffery Alice ag3
--- NOTE | 2020-04-20 09:45 | EDPHYS ---
Physician Documentation [facility] Name: Marie Doe Age: 29 yrs Sex: Female : 1990 Arrival Date: 04/20/2020 Time: 03:55 Bed 17 Private MD: LAURA Physician Johnnie Vizcaino HPI: 04/20 04:53 This 29 yrs old Black Female presents to ER via Ambulatory with complaints of Abdominal tw4 Pain. 04:53 The patient presents with abdominal pain in the left lower quadrant. 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 - Social history:: Smoking status: Patient denies any tobacco usage or history of. Patient/guardian denies using alcohol, street drugs. ROS: 06:01 Constitutional: Negative for fever, chills, and weight loss, Eyes: Negative for injury, tw4 pain, redness, and discharge, Cardiovascular: Negative for chest pain, palpitations, and edema, Respiratory: Negative for shortness of breath, cough, wheezing, and pleuritic chest pain, Back: Negative for injury and pain, MS/Extremity: Negative for injury and deformity, Skin: Negative for injury, rash, and discoloration, Neuro: Negative for headache, weakness, numbness, tingling, and seizure. 06:01 Abdomen/GI: Positive for abdominal pain, Negative for nausea and vomiting, nausea, vomiting, and diarrhea, nausea, vomiting, abdominal cramps, abdominal distension, anorexia, dysphagia, hematemesis, black/tarry stool, rectal pain. Exam: 06:01 Constitutional: This is a well developed, well nourished patient who is awake, alert, tw4 and in no acute distress. Head/Face: Normocephalic, atraumatic. Chest/axilla: Normal chest wall appearance and motion. Nontender with no deformity. No lesions are appreciated. Cardiovascular: Regular rate and rhythm with a normal S1 and S2. No gallops, murmurs, or rubs. Normal PMI, no JVD. No pulse deficits. Respiratory: Lungs have equal breath sounds bilaterally, clear to auscultation and percussion. No rales, rhonchi or wheezes noted. No increased work of breathing, no retractions or nasal flaring. MS/ Extremity: Pulses equal, no cyanosis. Neurovascular intact. Full, normal range of motion. Neuro: Awake and alert, GCS 15, oriented to person, place, time, and situation. Cranial nerves II-XII grossly intact. Motor strength 5/5 in all extremities. Sensory grossly intact. Cerebellar exam normal. Normal gait. 06:01 Abdomen/GI: Inspection: abdomen appears normal, Bowel sounds: normal, Palpation: moderate abdominal tenderness, in the left lower quadrant. Vital Signs: 04:14 BP 135 / 65; Pulse 74; Resp 17; Temp 98.6; Pulse Ox 98% ; Weight 102.51 kg; Height 5 tl1 ft. 10 in. (177.80 cm); Pain 9/10; 05:33 BP 115 / 66; Pulse 67; Resp 14 S; Pulse Ox 97% on R/A; bb 06:56 BP 115 / 74; Pulse 81; Resp 16 S; Pulse Ox 98% on R/A; Pain 9/10; bb 07:15 BP 118 / 74; Pulse 74; Resp 18; Pulse Ox 97% on R/A; Pain 7/10; em 08:28 BP 107 / 61; Pulse 71; Resp 18; Pulse Ox 98% on R/A; em 09:56 BP 107 / 67; Pulse 70; Resp 18; Pulse Ox 98% on R/A; em 04:14 Body Mass Index 32.43 (102.51 kg, 177.80 cm) tl1 MDM: 04:30 Patient medically screened. tw4 07:15 ED course: Pt signed out at shift change pending US for torsion. 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 Not visualized on CT. POC to discharge if negative. Follow up with Dr. Dasilva. . 09:54 ED course: DW Dr. Dasilva. No masses or torsion. Normal CT and labs. Encouraged to fu ps1 with her OP and with MD Matute. Return precautions given if symptoms worsen as documented in the discharge instructions. DVD of imaging provided. . 09:56 Data reviewed: vital signs, nurses notes, lab test result(s), radiologic studies, CT ps1 scan, ultrasound, and as a result, I will discharge patient. 04/20 04:27 Order name: Basic Metabolic Panel; Complete Time: 05:21 bb 04/20 04:27 Order name: CBC with Diff; Complete Time: 05:21 bb 04/20 04:27 Order name: Hepatic Function; Complete Time: 05:21 bb 04/20 05:21 Interpretation: Normal except: GLOB 4.0; A/G 1.0; AST 13. tw4 04/20 04:27 Order name: Lipase; Complete Time: 05:21 bb 04/20 05:35 Order name: Urine Dipstick--Ancillary (enter results); Complete Time: 06:26 tt3 04/20 05:35 Order name: Urine --Ancillary (enter results); Complete Time: 06:26 tt3 04/20 04:32 Order name: CT Abd/Pelvis - IV Contrast Only tw4 04/20 07:51 Order name: Pelvis Complete; Complete Time: 09:42 EDMS 04/20 04:27 Order name: IV Saline Lock; Complete Time: 04:27 bb 04/20 04:27 Order name: Labs collected and sent; Complete Time: 04:27 bb Administered Medications: 04:51 Drug: morphine 4 mg Route: IVP; Site: right antecubital; bb 05:31 Follow up: Response: No adverse reaction; Pain is decreased bb 04:51 Drug: Zofran (Ondansetron) 4 mg Route: IVP; Site: right antecubital; bb 05:31 Follow up: Response: No adverse reaction bb 05:45 Drug: fentaNYL (PF) 50 mcg Route: IVP; Site: right antecubital; bb 06:51 Follow up: Response: No change in condition bb 06:51 Drug: Dilaudid 1 mg {Note: RASS 0.} Route: IVP; Site: right antecubital; bb 07:38 Follow up: Response: No adverse reaction; Marked relief of symptoms; Pain is decreased em 07:14 Drug: Zofran (Ondansetron) 4 mg Route: IVP; Site: right antecubital; em 07:39 Follow up: Response: No adverse reaction; Marked relief of symptoms; Nausea is decreasedem Disposition: 04/20/20 09:44 Discharged to Home. Impression: Pelvic pain. - Condition is Stable. - Discharge Instructions: Pelvic Pain, Female. - Prescriptions for Tylenol- Codeine #3 300-30 mg Oral Tablet - take 2 tablet by ORAL route every 6 hours As needed; 30 tablet. Zofran 4 mg Oral Tablet - take 1 tablet by ORAL route every 12 hours As needed; 20 tablet. - Medication Reconciliation Form, Thank You Letter, Antibiotic Education, Prescription Opioid Use form. - Follow up: Shaye Dasilva MD; When: As needed; Reason: Further diagnostic work-up. Follow up: Private Physician; When: MD Matute for further diagnostic management.; Reason: Re-evaluation by your physician. Follow up: Emergency Department; When: As needed; Reason: Fever > 102 F, Worsening of condition. - Problem is new. - Symptoms have improved. Signatures: Dispatcher [employer] EDRussell Aiken RN RN em Bing Brumfield RN RN bb Lasagna, Tonya, RN RN tl1 Johnnie Vizcaino MD MD ps1 Carlos Brady MD MD tw4 Corrections: (The following items were deleted from the chart) 10 09:44 04/20/2020 09:44 Discharged to Home. Impression: Pelvic pain. Condition is em Stable. Forms are Medication Reconciliation Form, Thank You Letter, Antibiotic Education, Prescription Opioid Use. Follow up: Shaye Dasilva; When: As needed; Reason: Further diagnostic work-up. Follow up: Private Physician; When: MD Matute for further diagnostic management.; Reason: Re-evaluation by your physician. Follow up: Emergency Department; When: As needed; Reason: Fever > 102 F, Worsening of condition. Problem is new. Symptoms have improved. ps1
[2020-04-20 10:31] VITALS: TEMP 98.6
[2020-04-20 10:40] VITALS: O2SAT 98
[2020-04-20 10:46] VITALS: BP 107/67
--- NOTE | 2020-04-21 11:12 | RAD REPORT ---
EXAM DESCRIPTION: CT - Abdomen Pelvis W Contrast - 04/20/2020 6:35 am CLINICAL HISTORY: The patient is 29 years old and is Female; ABD PAIN TECHNIQUE: Axial computed tomography images of the abdomen and pelvis with intravenous contrast. S agittal and coronal reformatted images were created and reviewed. This CT exam was performed using one or more of the following dose reduction techniques: automated exposure control, adjustment of t he mA and/or kV according to patient size, and/or use of iterative reconstruction technique. COMPARISON: No relevant prior studies available. FINDINGS: Lung bases: Unremarkable. No mass. No consolidation. ABDOMEN: Liver: Right hepatic simple cyst, 4.5 mm. No follow-up imaging recommended. Gallbladder and bile ducts: Unremarkable. No calcified stones. No ductal dilation. Pancreas: No findings to suggest acute pancreatitis. No mass visualized. No ductal dilation. Spleen: Unremarkable. No splenomegaly. Adrenals: Unremarkable. No mass. Kidneys and ureters: Unremarkable. No solid mass. No hydronephrosis. Stomach and bowel: No bowel dilatation or obstruction. No bowel wall thickening. PELVIS: Appendix: Appendectomy. Bladder: Bladder is not well distended. No stones. Reproductive: Unremarkable as visualized. ABDOMEN and PELVIS: Intraperitoneal space: Unremarkable. No free air. No significant fluid collection. Bones/joints: No acute fracture. No dislocation. Soft tissues: Unremarkable. Vasculature: Unremarkable. No abdominal aortic aneurysm. Lymph nodes: No pathologically enlarged lymph nodes. IMPRESSION: No acute obstructive or inflammatory process identified. Electronically signed by: Aimee Eden MD 04/20/2020 5:53 AM CDT Due to temporary technical issues with the PACS/Fluency reporting system, reports are being signed by the in house radiologist without review as a courtesy to ensure prompt reporting. The interpreting r adiologist is fully responsible for the content of the report.
== END 2020-04-20 10:20 | disposition home or self-care (01) ==
LOC: ER 03:53
DX: R10.2 Pelvic and perineal pain (principal); E28.2 Polycystic ovarian syndrome; Z88.8 Allergy status to other drugs, medicaments and biological substances
CPT/HCPCS: 85025; 80048; 36415; 81025; 80076; 81003; 83690; 74177; 76856; 96375; 96374; 99284; Q9967; J3010; J1170; J2405 ×2

== ENCOUNTER 2024-04-29 08:18 | Emergency (ER) | payer OTHER ==
--- OUTSIDE RECORDS SUMMARY | 2024-04-29 08:21 | XMS REPORT | Clinical Summary ---
Author Name Unknown Organization [facility] Address [address] [place] [address] Care Team Providers Care Electrical Design Technologist Name Role Phone Tera James MD Primary Care Provider [phone] Shaye Dasilva MD Unavailable [phone] Allergies Active Allergy Reactions Criticality Noted Date Comments Atropine (Bulk) Hives,Swelling,Rash Low 01/21/2020 Allergic to Atropine Eye gtts (when a child)-redness, swollen eyes and hives) Minocycline Anaphylaxis,Dermatit is,H surjit,Itching,Rash,Swelli ng High 04/20/2019 Medications Medication Sig Dispensed Refills Start Date End Date Status lithium carbonate 300 MG capsule 600 mg daily. 05/16/2019 Active medroxyPROGESTERone (DEPO-PROVERA) 150 mg/mL injection Inject 150 mg into the shoulder, thigh, or buttocks every 3 (three) months. Active risperiDONE (RisperDAL) 0.5 mg tablet Take 0.5 mg by mouth daily. 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 Cancer Staging:Clinical:Stage IA(Primary) - Signed by Tera James MD on 01/30/2020 Acute popliteal DVT 01/21/2020 History of reduction of breast 04/20/2019 Irritable bowel syndrome characterized by consti pation 04/20/2019 Polycystic ovarian syndrome 04/20/2019 Psoriasis 04/20/2019 Surgical History Surgery Date Site/Laterality Comments APPENDECTOMY 07/11/2011 - 07/10/2012 lap COLONOSCOPY Most recent 2017 I have had four starting in 2004 OOPHORECTOMY 07/11/2017 - 07/10/2018 Right ovary and fallopian tube CHOLECYSTECTOMY 07/11/2004 - 07/10/2005 lap UPPER GASTROINTESTINAL ENDOSCOPY 07/11/2017 - 07/10/2018 REDUCTION MAMMAPLASTY 07/11/2005 - 07/10/2006 TERATOMA EXCISION 12/27/2019 from L ovary OVARIAN CYST SURGERY 07/11/2008 - 07/10/2009 Ruptured hemorrhagic ovarian cyst removed and ovary repaired TONSILLECTOMY as a child EYE SURGERY X3 - three corrective eye surgeries, 1988, 1990 and 2003 Medical History Medical History Date Comments Thrombosis Around 2007 Allergic rhinitis 2003 Unspecified lump in unspecif ied breast 2005 Had breast reduction Irritable bowel syndrome 2015 Renal stone 2015 Uterine leiomyoma 2018 Polycystic ovarian syndrome 2002 Bipolar disorder 2018 Initially Dx wi th this due to psychosis but dx changed Psoriasis 2018 I see a dermatol ogist Family History Medical History Relation Name Comments Breast cancer Maternal Aunt Two generations back Breast cancer Maternal Cousin Ovarian cancer Maternal Grandmother Great grandmother Relation Name Status Comments Maternal Aunt Two generations back Maternal Cousin Maternal Grandmother Great grandmother Social History Tobacco Use Types Packs/Day Years Used Date Smoking Tobacco: Never Smokeless Tobacco: Never Alcohol Use Standard Drinks/Week Comments Not Currently 0 (1 standard drink = 0.6 oz pure alcohol) I have like one drink a month Sex and Gender Information Value Date Recorded Sex Assigned at Not on file Gender Identity Not on file Sexual Orientation Not on file Obstetrics History Para Term AB IAB SAB Ectopic Multiple Livin g Live Births 0 0 0 0 0 0 0 0 0 0 0 Plan of Treatment Health Maintenance Due Date Last Done Comments COVID-19 Vaccine ( - 2023-2 5 season) 2024 Influenza Vaccine (#1) 2024 Pneumococcal Vaccine: Pediat rics (0 to 5 Years) and At-Risk Patients (6 to 64 Years) Aged Out No longer eligi ble based on patient's age to complete this topic Advance Directives Documents on File Type Date Recorded Patient Curer Foam [employer]ber Expl anation Advance Directives: Medical Power of Head Field Hockey Coach 03/27/2020 Medical Power of Att orney Care Teams Electrical Design Technologist Relationship Specialty Start Date End Date Tera James MD [address] [place] [id number] [email or web address] PCP - General Gynecological Oncology 01/14/20 Shaye Dasilva MD [address] [place] [phone] [email or web address] PCP - External Referring Obstetrics/Gynecology 01/14/20
[2024-04-29] MEDS ORDERED: KETOROLAC 30 MG/ML INJ ONE (08:38)
[2024-04-29] MEDS ORDERED: ONDANSETRON 4 MG/2 ML VIAL ONE (08:38)
[2024-04-29] MEDS ORDERED: MORPHINE 4 MG/ML SYR ONE (08:39)
[2024-04-29] MEDS ORDERED: BISACODYL 10 MG RECTAL SUPP ONE (08:39)
[2024-04-29] MEDS ORDERED: FAMOTIDINE 20 MG/2 ML VIAL IV ONE (08:39)
[2024-04-29] MEDS ORDERED: NA CHLORIDE 0.9% 1,000 ML ONE (08:39)
[2024-04-29] MEDS ORDERED: LACTULOSE 20 GM/30 ML UCUP ONE (08:40)
[2024-04-29 08:44] LABS: Absolute Eosinophils 0.1 K/uL (0-0.5); Absolute Lymphocytes (CBC) 2.3 K/uL (0.7-4.9); Absolute Monocytes 0.4 K/uL (0.1-1.3); Absolute Neutrophil 2.9 K/uL (1.8-8.0); Basophils % 0.5 % (0-1.3); Eosinophils % 1.7 % (0-4.4); Hemoglobin 12.2 g/dL (12.0-15.0); Lymphocytes % 40.9 % (15.3-44.8); MCH 28.3 pg (27.0-35.0); MCHC 32.1 g/dL (32.0-36.0); MCV 88.2 fL (80-100); MPV 7.8 fL (7.6-11.3); Monocytes % 6.8 % (3.3-12.3); Neutrophils % 50.1 % (41.7-73.7); Platelets 235 thou/uL (152-406); RBC Red Blood Cell Count 4.31 M/uL (3.86-4.86); Red Cell Distribution Width 13.2 % (12.1-15.2)
[2024-04-29 09:00] LABS: ALT/SGPT 15 U/L (13-56); Albumin 3.5 g/dL (3.4-5.0); Alkaline Phosphatase 55 U/L (45-117); BUN Blood Urea Nitrogen 8 mg/dL (7-18); Bicarbonate 23 mEq/L (21-32); Bilirubin Total 0.2 mg/dL (0.2-1.0); Globulin 3.6 g/dL (2.3-3.5); Glomerular Filtration Rate 116 ml/min (=/>90); Glucose Level 89 mg/dL (74-106); Lipase 34 U/L (13-75); Protein, Total 7.1 g/dL (6.4-8.2); Sodium Level 140 mEq/L (136-145)
[2024-04-29 09:05] LABS: AST/SGOT < 10 U/L (15-37)
[2024-04-29 09:07] LABS: Sqamous Epithelial <5 /HPF (None Seen); Urine Bacteria None Seen /HPF (<20); Urine Bilirubin NEGATIVE (Negative); Urine Blood 1+ (Negative); Urine Clarity Clear (Clear); Urine Color Light-Yellow (Yellow); Urine Culture Reflex Order NOT NEEDED; Urine Glucose NEGATIVE (Negative); Urine Ketones NEGATIVE (Negative); Urine Microscopic Reflex YN ORDER UMIC; Urine Mucus Slight /HPF (None Seen); Urine Nitrite NEGATIVE (Negative); Urine Protein NEGATIVE (Negative); Urine Urobilinogen Normal (Normal); Urine WBC <5 /HPF (<5); Urine pH 6.5 (5.0-7.0)
--- NOTE | 2024-04-29 10:15 | RAD REPORT ---
EXAMINATION: CT ABDOMEN AND PELVIS WITH CONTRAST CLINICAL INDICATION: Female, 33 years old.ABD PAIN TECHNIQUE: CT abdomen and pelvis was performed, after the administration of IV contrast, as per depar tment protocol. Axial, sagittal and coronal reconstructions were obtained. One or more of the following dose reduction techniques were used: Automated exposure control, adjustment of the mA and/o r kV according to patient size, and/or iterative reconstruction. Unless otherwise specified, incidental findings do not require dedicated imaging follow-up. [id number]. COMPARISON: 04/20/2020 FINDINGS: LOWER CHEST: The visualized lung bases are clear. LIVER: Subcentimeter low-density lesion in the posterior right hepatic lobe has benign imaging featur es. GALLBLADDER/BILE DUCT: No biliary ductal dilatation.? PANCREAS: No significant abnormality. SPLEEN: Normal size. No focal lesion. ADRENALS: Normal; no mass. KIDNEYS AND URETERS: Normal size and contour. No hydronephrosis. GASTROINTESTINAL TRACT: Stomach is non-dilated. Small bowel has normal course and caliber. No colonic wall thickening or pericolonic inflammatory changes. Appendectomy. Moderate colonic stool. PERITONEUM: No ascites. LYMPH NODES: No lymphadenopathy. ABDOMINAL AORTA AND OTHER VESSELS: Normal caliber aorta and IVC. URINARY BLADDER: Normal contour. REPRODUCTIVE ORGANS: No pathologic process MUSCULOSKELETAL: No acute or suspicious osseous abnormality. ADDITIONAL FINDINGS: None. IMPRESSION: No acute or significant abnormalities seen in the abdomen or pelvis. Moderate colonic stool which cou ld indicate constipation. No bowel obstruction.
--- NOTE | 2024-04-29 10:36 | ER ---
Nurse's Notes [facility] Name: Marie Doe Age: 33 yrs Sex: Female : 1990 Arrival Date: 04/29/2024 Time: 08:18 Bed 6 Private MD: Diagnosis: Epigastric abdominal tenderness;Abdominal pain, Generalized;Constipation Presentation: 04/29 08:27 Chief complaint: Patient states: Abdominal pain with nausea and constipation for 8 ll1 days. No fever. Coronavirus screen: Client denies travel out of the [place] in the last 14 days. At this time, the client does not indicate any symptoms associated with coronavirus-19. Ebola Screen: Patient denies travel to an Ebola-affected area in the 21 days before illness onset. Initial Sepsis Screen: Does the patient meet any 2 criteria? No. Patient's initial sepsis screen is negative. Does the patient have a suspected source of infection? No. Patient's initial sepsis screen is negative. Risk Assessment: Do you want to hurt yourself or someone else? Patient reports no desire to harm self or others. Onset of symptoms was April 21, 2024. 08:27 Method Of Arrival: Ambulatory ll1 08:27 Acuity: LILLIAN 3 ll1 Triage Assessment: 08:29 General: Appears in no apparent distress. Behavior is calm, cooperative, appropriate ll1 for age. Pain: Complains of pain in abdomen Pain currently is 8 out of 10 on a pain scale. GI: Reports upper abdominal pain, constipation, nausea. Historical: - Allergies: 08:26 atropine eye drops; ll1 08:26 Minocycline; ll1 - PMHx: 08:26 insomnia; PCOS; ll1 - PSHx: 08:26 ovarian CA; ll1 - Immunization history:: Adult Immunizations up to date. - Infectious Disease History:: Denies. - Social history:: Smoking status: Patient denies any tobacco usage or history of. Screenin:58 [facility] ED Fall Risk Assessment (Adult) History of falling in the last 3 months, db including since admission No falls in past 3 months (0 pts) Confusion or Disorientation No (0 pts) Intoxicated or Sedated No (0 pts) Impaired Gait No (0 pts) Mobility Assist Device Used No (0 pt) Altered Elimination No (0 pt) Score/Fall Risk Level 0 - 2 = Low Risk Oriented to surroundings, Maintained a safe environment. Abuse screen: Denies threats or abuse. Denies injuries from another. Nutritional screening: No deficits noted. Tuberculosis screening: No symptoms or risk factors identified. Assessment: 08:35 Reassessment: Patient appears in no apparent distress at this time. Patient and/or db family updated on plan of care and expected duration. Pain level reassessed. Patient is alert, oriented x 3, equal unlabored respirations, skin warm/dry/pink. General: Appears in no apparent distress. comfortable, Behavior is calm, cooperative. Pain: Complains of pain in abdomen. Neuro: Level of Consciousness is awake, alert, obeys commands, Oriented to person, place, time, situation. Respiratory: Airway is patent Respiratory effort is even, unlabored, Respiratory pattern is regular, symmetrical. GI: Bowel sounds present X 4 quads. Abd is soft Reports constipation, nausea. 09:00 Reassessment: NOTIFIED CT PATIENT FINISHED ORAL CONTRAST. db 11:25 Reassessment: Patient appears in no apparent distress at this time. Patient and/or db family updated on plan of care and expected duration. Pain level reassessed. Patient is alert, oriented x 3, equal unlabored respirations, skin warm/dry/pink. Patient states feeling better. Patient states symptoms have improved. Vital Signs: 08:27 BP 152 / 99; Pulse 97; Resp 17; Temp 97.4; Pulse Ox 99% on R/A; Pain 8/10; ll1 11:25 BP 148 / 88; Pulse 88; Resp 18; Temp 97.9; Pulse Ox 99% ; db 08:27 Pain Scale: Adult ll1 ED Course: 08:21 Patient arrived in ED. mr 08:21 Brady Matute MD is Attending Physician. jesika 08:24 Radha Jaquez, NATTY is Primary Nurse. db 08:26 Arm band placed on Patient placed in an exam room, on a stretcher. ll1 08:29 Triage completed. ll1 08:32 Initial lab(s) drawn, by me, sent to lab. Inserted saline lock: 20 gauge in right db antecubital area, using aseptic technique. Blood collected. Flushed with 10 mL NS. 08:59 Patient has correct armband on for positive identification. Bed in low position. Call db light in reach. Side rails up X 1. Pulse ox on. NIBP on. Warm blanket given. Pillow given. 09:00 Oral contrast reported to be complete. mw3 09:[address] db 10:04 CT Abd/Pelvis - PO and IV Contrast In Process Unspecified. EDMS 10:[address] db 11:25 Provided Education on: DSICHARGE. db 11:25 No provider procedures requiring assistance completed. IV discontinued, intact, db bleeding controlled, No redness/swelling at site. Administered Medications: 08:38 Drug: NS 0.9% IV 1000 ml IV at 1 bolus Per protocol; to be given as a bolus over 60 db minutes Route: IV; Rate: 1 bolus; Site: right antecubital; 11:20 Follow up: Response: No adverse reaction; IV Status: Completed infusion; IV Intake: db 1000ml 08:40 Drug: Famotidine IVP 20 mg IVP once; dilute with 10 mL 0.9% NaCl; give over 2 minutes db Route: IVP; Site: right antecubital; 11:20 Follow up: Response: No adverse reaction db 08:40 Drug: Ondansetron IVP 4 mg IVP once; over 2 minutes Route: IVP; Site: right antecubital;db 11:20 Follow up: Response: No adverse reaction db 08:40 Drug: Lactulose PO 30 grams 45 ml PO once Volume: 45 ml; Route: PO; db 11:20 Follow up: Response: No adverse reaction db 08:45 Drug: TORadol - Ketorolac IVP 15 mg IVP once Route: IVP; Site: right antecubital; db 11:20 Follow up: Response: No adverse reaction db 08:45 Drug: morphine IVP or IV 4 mg IVP once over 4 mins Route: IVP; Infused Over: 4 mins; db Site: right antecubital; 11:20 Follow up: Response: No adverse reaction; Pain is decreased db 08:50 Drug: Dulcolax NE Suppository 10 mg NE once Route: NE; db 11:20 Follow up: Response: No adverse reaction db Medication: 11:25 VIS not applicable for this client. db Intake: 11:20 IV: 1000ml; Total: 1000ml. db Outcome: 10:35 Discharge ordered by MD. canchola 11:25 Discharged to home ambulatory, with family, db 11:25 Condition: stable 11:25 Discharge instructions given to patient, Instructed on discharge instructions, follow up and referral plans. 11:29 Patient left the ED. rs5 Signatures: Dispatcher [employer] EDBrady Reid MD MD cha Rivera, Mary, [facility] Reg Jessica Rayo mw3 Frida Oshea, RN RN ll1 Radha Jaquez, RN RN db Jacinto Gunter RN RN rs5
--- NOTE | 2024-04-29 10:36 | EDPHYS ---
Physician Documentation [facility] Name: Marie Doe Age: 33 yrs Sex: Female : 1990 Arrival Date: 04/29/2024 Time: 08:18 Bed 6 Private MD: LAURA Physician Brady Matute HPI: 04/29 09:07 This 33 yrs old Black Female presents to ER via Ambulatory with complaints of Abdominal jesika Pain, Constipation, Nausea. 09:07 The patient presents to the emergency department with nausea, vomiting, abdominal pain, jesika of the right upper quadrant and left upper quadrant. Onset: The symptoms/episode began/occurred 3 day(s) ago. Possible causes: unknown. The symptoms are aggravated by nothing. The symptoms are alleviated by nothing. Associated signs and symptoms: The patient has no apparent associated signs or symptoms. Severity of symptoms: At their worst the symptoms were moderate in the emergency department the symptoms are unchanged. The patient has not experienced similar symptoms in the past. Historical: - Allergies: 08:26 atropine eye drops; ll1 08:26 Minocycline; ll1 - PMHx: 08:26 insomnia; PCOS; ll1 - PSHx: 08:26 ovarian CA; ll1 - Immunization history:: Adult Immunizations up to date. - Infectious Disease History:: Denies. - Social history:: Smoking status: Patient denies any tobacco usage or history of. ROS: 09:08 Constitutional: Negative for fever, chills, and weight loss, Eyes: Negative for injury, jesika pain, redness, and discharge, ENT: Negative for injury, pain, and discharge, Neck: Negative for injury, pain, and swelling, Cardiovascular: Negative for chest pain, palpitations, and edema, Respiratory: Negative for shortness of breath, cough, wheezing, and pleuritic chest pain, Back: Negative for injury and pain, : Negative for injury, bleeding, discharge, and swelling, MS/Extremity: Negative for injury and deformity, Skin: Negative for injury, rash, and discoloration, Neuro: Negative for headache, weakness, numbness, tingling, and seizure, Psych: Negative for depression, anxiety, suicide ideation, homicidal ideation, and hallucinations, Allergy/Immunology: Negative for hives, rash, and allergies, Endocrine: Negative for neck swelling, polydipsia, polyuria, polyphagia, and marked weight changes, Hematologic/Lymphatic: Negative for swollen nodes, abnormal bleeding, and unusual bruising, 09:08 Abdomen/GI: Positive for abdominal pain, nausea, constipation, Exam: 09:08 Constitutional: This is a well developed, well nourished patient who is awake, alert, jesika and in no acute distress. Head/Face: Normocephalic, atraumatic. Eyes: Pupils equal round and reactive to light, extra-ocular motions intact. Lids and lashes normal. Conjunctiva and sclera are non-icteric and not injected. Cornea within normal limits. Periorbital areas with no swelling, redness, or edema. ENT: Nares patent. No nasal discharge, no septal abnormalities noted. Tympanic membranes are normal and external auditory canals are clear. Oropharynx with no redness, swelling, or masses, exudates, or evidence of obstruction, uvula midline. Mucous membranes moist. Neck: Trachea midline, no thyromegaly or masses palpated, and no cervical lymphadenopathy. Supple, full range of motion without nuchal rigidity, or vertebral point tenderness. No Meningismus. Chest/axilla: Normal chest wall appearance and motion. Nontender with no deformity. No lesions are appreciated. Cardiovascular: Regular rate and rhythm with a normal S1 and S2. No gallops, murmurs, or rubs. Normal PMI, no JVD. No pulse deficits. Respiratory: Lungs have equal breath sounds bilaterally, clear to auscultation and percussion. No rales, rhonchi or wheezes noted. No increased work of breathing, no retractions or nasal flaring. Back: No spinal tenderness. No costovertebral tenderness. Full range of motion. Female : Normal external genitalia. Skin: Warm, dry with normal turgor. Normal color with no rashes, no lesions, and no evidence of cellulitis. MS/ Extremity: Pulses equal, no cyanosis. Neurovascular intact. Full, normal range of motion. Neuro: Awake and alert, GCS 15, oriented to person, place, time, and situation. Cranial nerves II-XII grossly intact. Motor strength 5/5 in all extremities. Sensory grossly intact. Cerebellar exam normal. Normal gait. Psych: Awake, alert, with orientation to person, place and time. Behavior, mood, and affect are within normal limits. Vital Signs: 08:27 BP 152 / 99; Pulse 97; Resp 17; Temp 97.4; Pulse Ox 99% on R/A; Pain 8/10; ll1 11:25 BP 148 / 88; Pulse 88; Resp 18; Temp 97.9; Pulse Ox 99% ; db 08:27 Pain Scale: Adult ll1 MDM: 08:21 Medical Screening Exam initiated jesika 09:08 Differential diagnosis: Nonspecific abd pain, gastritis, cholecystitis, pancreatitis, jesika appendicitis, diverticulitis, viral gastroenteritis, gastroenteritis. Data reviewed: vital signs, nurses notes, lab test result(s), radiologic studies, CT scan. Consideration of Admission/Observation Escalation of care including admission/observation considered. I considered the following discharge prescriptions or medication management in the emergency department Medications were administered in the Emergency Department. See MAR. Independent interpretation of the following test(s) in the Emergency Department CT Scan: My interpretation is ct ab/pel. Test considered but Not performed: Ultrasound no abd usg. Historians other than the Patient: Parent: mom well informed. Care significantly affected by the following chronic conditions: Obesity. Counseling: I had a detailed discussion with the patient and/or guardian regarding the historical points, exam findings, and any diagnostic results supporting the discharge/admit diagnosis, lab results, radiology results. 04/29 08:29 Order name: CBC with Diff; Complete Time: 08:57 [facility] 04/29 08:29 Order name: CMP; Complete Time: 09:40 [facility] 04/29 08:29 Order name: Lipase; Complete Time: 09:40 [facility] 04/29 08:29 Order name: Test, Urine; Complete Time: 08:57 [facility] 04/29 08:29 Order name: Urinalysis w/ reflexes; Complete Time: 09:40 [facility] 04/29 08:29 Order name: CT Abd/Pelvis - PO and IV Contrast; Complete Time: 10:33 [facility] 04/29 08:29 Order name: IV Saline Lock; Complete Time: 08:36 [facility] 04/29 08:29 Order name: Labs collected and sent; Complete Time: 08:36 [facility] Administered Medications: 08:38 Drug: NS 0.9% IV 1000 ml IV at 1 bolus Per protocol; to be given as a bolus over 60 db minutes Route: IV; Rate: 1 bolus; Site: right antecubital; 11:20 Follow up: Response: No adverse reaction; IV Status: Completed infusion; IV Intake: db 1000ml 08:40 Drug: Famotidine IVP 20 mg IVP once; dilute with 10 mL 0.9% NaCl; give over 2 minutes db Route: IVP; Site: right antecubital; 11:20 Follow up: Response: No adverse reaction db 08:40 Drug: Ondansetron IVP 4 mg IVP once; over 2 minutes Route: IVP; Site: right antecubital;db 11:20 Follow up: Response: No adverse reaction db 08:40 Drug: Lactulose PO 30 grams 45 ml PO once Volume: 45 ml; Route: PO; db 11:20 Follow up: Response: No adverse reaction db 08:45 Drug: TORadol - Ketorolac IVP 15 mg IVP once Route: IVP; Site: right antecubital; db 11:20 Follow up: Response: No adverse reaction db 08:45 Drug: morphine IVP or IV 4 mg IVP once over 4 mins Route: IVP; Infused Over: 4 mins; db Site: right antecubital; 11:20 Follow up: Response: No adverse reaction; Pain is decreased db 08:50 Drug: Dulcolax NE Suppository 10 mg NE once Route: NE; db 11:20 Follow up: Response: No adverse reaction db Disposition Summary: 04/29/24 10:35 Discharge Ordered Notes: Location: Home jesika Problem: new jesika Symptoms: have improved jesika Condition: Stable jesika Diagnosis - Epigastric abdominal tenderness jesika - Abdominal pain, Generalized jesika - Constipation jesika Followup: jesika - With: Private Physician - When: 2 - 3 days - Reason: Recheck today's complaints, Continuance of care, Re-evaluation by your physician Discharge Instructions: - Discharge Summary Sheet jesika - Abdominal Pain, Adult jesika - Constipation, Adult jesika - Constipation, Adult, [id number] jesika - Abdominal Pain, Adult, [id number] jesika Forms: - Medication Reconciliation Form jesika - Antibiotic Education jesika - Prescription Opioid Use jesika - Patient Portal Instructions [facility] - Leadership Thank You Letter [facility] Prescriptions: - ondansetron 4 mg Oral Tablet,disintegrating - take 1 tablet ORAL route every 8 hours for 5 days prn; 20 tablet; Refills: 0, jesika Product Selection Permitted - Dulcolax (bisacodyl) 10 mg Rectal suppository - insert 1 suppository RECTAL route daily for 2 days; 3 suppository; Refills: 0, jesika Product Selection Permitted - Pepcid 20 mg Oral Tablet - take 1 tablet ORAL route every 12 hours for 10 days; 20 tablet; Refills: 0, jesika Product Selection Permitted - Lactulose 10 gram/15 mL Oral Solution - take 30 milliliters ORAL route once daily; 300 milliliter; Refills: 0, Product jesika Selection Permitted - dicyclomine 20 mg Oral tablet - take 1 tablet ORAL route 4 times per day; 28 tablet; Refills: 0, Product jesika Selection Permitted Signatures: Dispatcher [employer] EDMS Brady Matute MD MD cha Lewis, Lynsay, RN RN ll1 Radha Jaquez RN RN db Corrections: (The following items were deleted from the chart) 08:29 08:29 CBC+H.LAB.BRZ ordered. EDMS EDMS 08:29 08:29 COMPREHENSIVE METABOLIC PANEL+C.LAB.BRZ ordered. EDMS EDMS 08:29 08:29 LIPASE+C.LAB.BRZ ordered. EDMS EDMS 08:29 08:29 Test, Urine+UC.LAB.BRZ ordered. EDMS EDMS 08:29 08:29 Urinalysis+U.LAB.BRZ ordered. EDMS EDMS 08:29 08:29 Abdomen Pelvis W Con+CT.RAD.BRZ ordered. EDMS EDMS
[2024-04-29 14:30] VITALS: BP 152/99; TEMP 97.4; O2SAT 99
== END 2024-04-29 11:29 | disposition home or self-care (01) ==
LOC: ER 08:18
DX: K59.00 Constipation, unspecified (principal); R10.84 Generalized abdominal pain; R11.0 Nausea
CPT/HCPCS: 96361; 85025; 81001; 36415; 81025; 83690; 80053; 74177; 96375; 96374; 99285; Q9967; J2405; J7030